=== PATIENT | female | born 1950 | race Caucasian/White ===

== ENCOUNTER 2019-03-03 13:39 | Emergency (ER) | payer OTHER ==
--- NOTE | 2019-03-03 14:18 | ER ---
Nurse's Notes [facility] Name: Diane Carrasco Age: 68 yrs Sex: Female : 1950 Arrival Date: 03/03/2019 Time: 13:40 Bed 24 Private MD: Byron Gannon Diagnosis: Paresthesia of skin Presentation: 03/03 13:46 Presenting complaint: Patient states: She hurt her back 2 weeks ago and has had aj1 numbness to her face, tongue and both her arms since then, She was seen at Dr. Gannon's office for this complaint and has had multiple X-Rays. Reports that she has a follow up with Dr. Gannon in the morning. Patient ambulated to triage with a steady gait. Transition of care: patient was not received from another setting of care. Onset of symptoms was 2018. Risk Assessment: Do you want to hurt yourself or someone else? Patient reports no desire to harm self or others. Initial Sepsis Screen: Does the patient meet any 2 criteria? HR > 90 bpm. No. Patient's initial sepsis screen is negative. Does the patient have a suspected source of infection? No. Patient's initial sepsis screen is negative. Care prior to arrival: None. 13:46 Method Of Arrival: Ambulatory aj1 13:46 Acuity: THAO 3 aj1 Triage Assessment: 13:51 General: Appears in no apparent distress. uncomfortable, Behavior is calm, cooperative, aj1 appropriate for age. Pain: Pain currently is 7 out of 10 on a pain scale. Neuro: Level of Consciousness is awake, alert, obeys commands. Cardiovascular: Patient's skin is warm and dry. Respiratory: Airway is patent Respiratory effort is even, unlabored, Respiratory pattern is regular, symmetrical. Musculoskeletal: Range of motion: intact in all extremities. Historical: - Allergies: 13:51 No Known Allergies; aj1 - Home Meds: 13:51 Omeprazole Oral [Active]; aj1 - PMHx: 13:51 Arthritis; GERD; aj1 - Immunization history:: Flu vaccine is not up to date. - Social history:: Smoking status: Patient uses tobacco products, denies chronic smoking, but will smoke occasionally. - Ebola Screening: : Patient denies travel to an Ebola-affected area in the 21 days before illness onset. - Family history:: not pertinent. - Hospitalizations: : No recent hospitalization is reported. Screenin:01 Abuse screen: Denies threats or abuse. Denies injuries from another. Nutritional rv screening: No deficits noted. Tuberculosis screening: No symptoms or risk factors identified. Fall Risk None identified. No fall in past 12 months (0 pts). Secondary diagnosis (15 points) impaired mobility, No IV (0 pts). Ambulatory Aid- None/Bed Rest/Nurse Assist (0 pts). Gait- Weak (10 pts.). Mental Status- Oriented to own ability (0 pts). Total Dee Fall Scale indicates No Risk (0-24 pts). Assessment: 14:00 General: Appears in no apparent distress. Behavior is calm. Pain:. Neuro: Level of rv Consciousness is awake, alert, obeys commands, Oriented to person, place, time, situation. Cardiovascular: Patient's skin is warm and dry. Respiratory: Airway is patent. GI: No signs and/or symptoms were reported involving the gastrointestinal system. : No signs and/or symptoms were reported regarding the genitourinary system. EENT: No signs and/or symptoms were reported regarding the EENT system. Derm: Skin is intact. Musculoskeletal:. 14:19 Reassessment: DR BARONE EXPLAINED TO THE PATIENT THE POSSIBLE CAUSE OF HER TREMORS AND rv NUMBNESS. DISCHARGED PATIENT WITHOUT PRESCRIPTION. PATIENT UNDERSTOOD THE PLAN OF CARE. Vital Signs: 13:51 BP 174 / 95; Pulse 103; Resp 20; Temp 97.8; Pulse Ox 100% on R/A; Height 5 ft. 5 in. aj1 (165.10 cm) (R); Pain 7/10; ED Course: 13:40 Patient arrived in ED. ag5 13:41 Byron Gannon MD is Private Physician. ag5 13:50 Triage completed. aj1 13:51 Arm band placed on Patient placed in an exam room. aj1 13:53 Humberto Barone MD is Attending Physician. rn 13:57 Manjinder Katz RN is Primary Nurse. rv 14:02 Patient has correct armband on for positive identification. Bed in low position. Call rv light in reach. Side rails up X 1. Adult w/ patient. Pulse ox on. NIBP on. 14:17 Byron Gannon MD is Referral Physician. rn 14:20 No provider procedures requiring assistance completed. Patient did not have IV access rv during this emergency room visit. Administered Medications: No medications were administered Outcome: 14:17 Discharge ordered by . rn 14:21 Discharged to home ambulatory. rv 14:21 Condition: good 14:21 Discharge instructions given to patient, Instructed on discharge instructions, follow up and referral plans. Demonstrated understanding of instructions, follow-up care. 14:21 Patient left the ED. rv Signatures: Kristen Grace RN RN aj1 Humberto Barone MD MD rn Vicente, Ronaldo, RN RN Pravin Garrett ag5
--- NOTE | 2019-03-03 14:18 | EDPHYS ---
Physician Documentation [facility] Name: Diane Carrasco Age: 68 yrs Sex: Female : 1950 Arrival Date: 03/03/2019 Time: 13:40 Bed 24 Private MD: Byrno Gannon ED Physician Humberto Barone HPI: 03/03 14:12 This 68 yrs old Female presents to ER via Ambulatory with complaints of rn Numbness Of Face, Numbness Of Hand, Back Pain. 14:12 The patient's problem is reported as paresthesias. The patient's problem is reported as rn paresthesias, in right upper extremity, in right lower extremity, in left upper extremity, in left lower extremity, in right side of face, in left side of face. Onset: The symptoms/episode began/occurred at an unknown time. The symptoms are alleviated by nothing. The symptoms are aggravated by nothing. Severity of symptoms: At their worst the symptoms were mild in the emergency department the symptoms are unchanged. The patient has experienced similar episodes in the past. Reports fell 3 weeks ago and hurt lower back, has been having intermittent numbness to face/arms/legs, since then. Has had xrays and put on muscle relaxer/pain meds/B12. Has had low b12 in past and numbness improved with injections at that time. PCP wrote for q weekly B12. Came here because has appt tomorrow and wanted to make sure wasn't having a stroke.. Historical: - Allergies: 13:51 No Known Allergies; aj1 - Home Meds: 13:51 Omeprazole Oral [Active]; aj1 - PMHx: 13:51 Arthritis; GERD; aj1 - Immunization history:: Flu vaccine is not up to date. - Social history:: Smoking status: Patient uses tobacco products, denies chronic smoking, but will smoke occasionally. - Ebola Screening: : Patient denies travel to an Ebola-affected area in the 21 days before illness onset. - Family history:: not pertinent. - Hospitalizations: : No recent hospitalization is reported. ROS: 14:12 Constitutional: Negative for fever, chills, and weight loss, Eyes: Negative for injury, rn pain, redness, and discharge, Neck: Negative for injury, pain, and swelling, Cardiovascular: Negative for chest pain, palpitations, and edema, Respiratory: Negative for shortness of breath, cough, wheezing, and pleuritic chest pain, Abdomen/GI: Negative for abdominal pain, nausea, vomiting, diarrhea, and constipation, Back: Positive for injury and pain, MS/Extremity: Negative for injury and deformity, Skin: Negative for injury, rash, and discoloration, Neuro: Negative for headache, weakness, and seizure. Exam: 14:12 Constitutional: This is a well developed, well nourished patient who is awake, alert, rn and in no acute distress. Ambulatory to room without difficulty or assistance. Head/Face: Normocephalic, atraumatic. Eyes: Pupils equal round and reactive to light, extra-ocular motions intact. Lids and lashes normal. Conjunctiva and sclera are non-icteric and not injected. Cornea within normal limits. Periorbital areas with no swelling, redness, or edema. ENT: MMM, no swelling Neck: Trachea midline, no thyromegaly or masses palpated, and no cervical lymphadenopathy. Supple, full range of motion without nuchal rigidity, or vertebral point tenderness. No Meningismus. Back: No spinal tenderness. No costovertebral tenderness. Full range of motion. Skin: Warm, dry with normal turgor. Normal color with no rashes, no lesions, and no evidence of cellulitis. MS/ Extremity: Pulses equal, no cyanosis. Neurovascular intact. Full, normal range of motion. Equal circumference. Neuro: Awake and alert, GCS 15, oriented to person, place, time, and situation. Cranial nerves II-XII grossly intact. Motor strength 5/5 in all extremities. Sensory grossly intact. Cerebellar exam normal. Normal gait. Vital Signs: 13:51 BP 174 / 95; Pulse 103; Resp 20; Temp 97.8; Pulse Ox 100% on R/A; Height 5 ft. 5 in. aj1 (165.10 cm) (R); Pain 7/10; MDM: 13:53 Patient medically screened. rn 14:12 Differential diagnosis: metabolic disorder. Data reviewed: vital signs, nurses notes, rn and as a result, I will discharge patient. Counseling: I had a detailed discussion with the patient and/or guardian regarding: the historical points, exam findings, and any diagnostic results supporting the discharge/admit diagnosis, the need for outpatient follow up, to return to the emergency department if symptoms worsen or persist or if there are any questions or concerns that arise at home. Refusal of service: The patient/guardian displays adequate decision making capability and despite a detailed discussion of alternatives, benefits, risks, and consequences refuses: CT Scan, all lab tests. Special discussion: I discussed with the patient/guardian in detail that at this point there is no indication for admission to the hospital. It is understood, however, that if the symptoms persist or worsen the patient needs to return immediately for re-evaluation. Based on the history and exam findings, there is no indication for further emergent testing or inpatient evaluation. I discussed with the patient/guardian the need to see the primary care provider for further evaluation of the symptoms. ED course: Pt with diffuse symptoms and bilateral paresthesias. Offered CT head and labs, patient declines. States has f/u with Dr. Gannon tomorrow and will wait until then. . Administered Medications: No medications were administered Disposition: 03/03/19 14:17 Discharged to Home. Impression: Paresthesia of skin. - Condition is Stable. - Discharge Instructions: Paresthesia. - Medication Reconciliation Form, Thank You Letter, Antibiotic Education, Prescription Opioid Use form. - Follow up: Byron Gannon MD; When: Tomorrow; Reason: Recheck today's complaints, Re-evaluation by your physician. - Problem is new. - Symptoms have improved. Signatures: Kristen Grace RN RN aj1 Humberto Barone MD MD rn Vicente, Ronaldo, RN RN rv Corrections: (The following items were deleted from the chart) 14:14 14:12 Constitutional: Negative for fever, chills, and weight loss, Eyes: Negative for rn injury, pain, redness, and discharge, Cardiovascular: Negative for chest pain, palpitations, and edema, Respiratory: Negative for shortness of breath, cough, wheezing, and pleuritic chest pain, Abdomen/GI: Negative for abdominal pain, nausea, vomiting, diarrhea, and constipation, MS/Extremity: Negative for injury and deformity, Skin: Negative for injury, rash, and discoloration, Neuro: Negative for headache, weakness, and seizure, rn 14:14 14:12 Constitutional: Negative for fever, chills, and weight loss, Eyes: Negative for rn injury, pain, redness, and discharge, Neck: Negative for injury, pain, and swelling, Cardiovascular: Negative for chest pain, palpitations, and edema, Respiratory: Negative for shortness of breath, cough, wheezing, and pleuritic chest pain, Abdomen/GI: Negative for abdominal pain, nausea, vomiting, diarrhea, and constipation, MS/Extremity: Negative for injury and deformity, Skin: Negative for injury, rash, and discoloration, Neuro: Negative for headache, weakness, and seizure, rn 14:15 14:12 Constitutional: This is a well developed, well nourished patient who is awake, rn alert, and in no acute distress. Ambulatory to room without difficulty or assistance. Head/Face: Normocephalic, atraumatic. Eyes: Pupils equal round and reactive to light, extra-ocular motions intact. Lids and lashes normal. Conjunctiva and sclera are non-icteric and not injected. Cornea within normal limits. Periorbital areas with no swelling, redness, or edema. ENT: MMM, no swelling Back: No spinal tenderness. No costovertebral tenderness. Full range of motion. Skin: Warm, dry with normal turgor. Normal color with no rashes, no lesions, and no evidence of cellulitis. MS/ Extremity: Pulses equal, no cyanosis. Neurovascular intact. Full, normal range of motion. Equal circumference. Neuro: Awake and alert, GCS 15, oriented to person, place, time, and situation. Cranial nerves II-XII grossly intact. Motor strength 5/5 in all extremities. Sensory grossly intact. Cerebellar exam normal. Normal gait. rn 14:21 14:17 03/03/2019 14:17 Discharged to Home. Impression: Paresthesia of skin. Condition rv is Stable. Forms are Medication Reconciliation Form, Thank You Letter, Antibiotic Education, Prescription Opioid Use. Follow up: Byron Gannon; When: Tomorrow; Reason: Recheck today's complaints, Re-evaluation by your physician. Problem is new. Symptoms have improved. rn
[2019-03-03 16:30] VITALS: BP 174/95; TEMP 97.8; O2SAT 100
== END 2019-03-03 14:21 | disposition home or self-care (01) ==
LOC: ER 13:39
DX: R20.2 Paresthesia of skin (principal); Z72.0 Tobacco use
CPT/HCPCS: 99283

== ENCOUNTER 2019-08-26 09:39 | Observation (INO) | payer OTHER ==
[2019-08-26 10:30] LABS: Absolute Lymphocytes (CBC) 2.8 K/uL (0.7-4.9); Basophils % 0.7 % (0-1.3); Hematocrit 42.2 % (36.0-45.0); Lymphocytes % 35.2 % (15.3-44.8); MPV 9.2 fL (7.6-11.3); Protime INR 0.93; RBC Red Blood Cell Count 4.67 M/uL (3.86-4.86)
[2019-08-26] MEDS ORDERED: ASPIRIN 81 MG CHEWABLE TABLET ONE (10:54)
[2019-08-26] MEDS ORDERED: METOPROLOL TAR 50 MG TAB ONE (10:54)
[2019-08-26] MEDS ORDERED: PANTOPRAZOLE 40 MG INJ ONE (10:54)
--- NOTE | 2019-08-26 10:54 | EDPHYS ---
Physician Documentation [facility] Name: Diane Carrasco Age: 68 yrs Sex: Female : 1950 Arrival Date: 08/26/2019 Time: 09:42 Bed 14 Private MD: Byron Gannon ED Physician Hosea Marshall HPI: 08/25 10:34 This 68 yrs old Female presents to ER via Ambulatory with complaints of Chest rand Pain, Dizziness. 10:34 The patient or guardian reports chest pain that is located primarily in the substernal rand area. Historical: - Allergies: 10:03 No Known Allergies; ss - PMHx: 10:03 Arthritis; GERD; ss - Immunization history:: Adult Immunizations up to date. - Social history:: Smoking status: Patient denies any tobacco usage or history of. ROS: 10:42 Constitutional: Negative for fever, chills, and weight loss, Eyes: Negative for injury, rand pain, redness, and discharge, ENT: Negative for injury, pain, and discharge, Neck: Negative for injury, pain, and swelling, Cardiovascular: Negative for chest pain, palpitations, and edema, Respiratory: Negative for shortness of breath, cough, wheezing, and pleuritic chest pain, Back: Negative for injury and pain, : Negative for injury, bleeding, discharge, and swelling, MS/Extremity: Negative for injury and deformity, Skin: Negative for injury, rash, and discoloration, Neuro: Negative for headache, weakness, numbness, tingling, and seizure, Psych: Negative for depression, anxiety, suicide ideation, homicidal ideation, and hallucinations, Allergy/Immunology: Negative for hives, rash, and allergies, Endocrine: Negative for neck swelling, polydipsia, polyuria, polyphagia, and marked weight changes, Hematologic/Lymphatic: Negative for swollen nodes, abnormal bleeding, and unusual bruising. 10:42 Cardiovascular: Positive for chest pain, of the chest. 10:42 Abdomen/GI: Positive for abdominal pain. Exam: 10:42 Constitutional: This is a well developed, well nourished patient who is awake, alert, rand and in no acute distress. Head/Face: Normocephalic, atraumatic. Eyes: Pupils equal round and reactive to light, extra-ocular motions intact. Lids and lashes normal. Conjunctiva and sclera are non-icteric and not injected. Cornea within normal limits. Periorbital areas with no swelling, redness, or edema. ENT: Nares patent. No nasal discharge, no septal abnormalities noted. Tympanic membranes are normal and external auditory canals are clear. Oropharynx with no redness, swelling, or masses, exudates, or evidence of obstruction, uvula midline. Mucous membranes moist. Neck: Trachea midline, no thyromegaly or masses palpated, and no cervical lymphadenopathy. Supple, full range of motion without nuchal rigidity, or vertebral point tenderness. No Meningismus. Chest/axilla: Normal chest wall appearance and motion. Nontender with no deformity. No lesions are appreciated. Cardiovascular: Regular rate and rhythm with a normal S1 and S2. No gallops, murmurs, or rubs. Normal PMI, no JVD. No pulse deficits. Respiratory: Lungs have equal breath sounds bilaterally, clear to auscultation and percussion. No rales, rhonchi or wheezes noted. No increased work of breathing, no retractions or nasal flaring. Abdomen/GI: Soft, non-tender, with normal bowel sounds. No distension or tympany. No guarding or rebound. No evidence of tenderness throughout. Back: No spinal tenderness. No costovertebral tenderness. Full range of motion. Female : Normal external genitalia. Skin: Warm, dry with normal turgor. Normal color with no rashes, no lesions, and no evidence of cellulitis. MS/ Extremity: Pulses equal, no cyanosis. Neurovascular intact. Full, normal range of motion. Neuro: Awake and alert, GCS 15, oriented to person, place, time, and situation. Cranial nerves II-XII grossly intact. Motor strength 5/5 in all extremities. Sensory grossly intact. Cerebellar exam normal. Normal gait. Psych: Awake, alert, with orientation to person, place and time. Behavior, mood, and affect are within normal limits. Vital Signs: 09:59 BP 198 / 93; Pulse 83; Resp 16; Temp 98.4(TE); Pulse Ox 98% on R/A; Weight 58.97 kg; ss Height 5 ft. 5 in. (165.10 cm); Pain 7/10; 11:00 BP 147 / 82; Pulse 67; Resp 18; Pulse Ox 98% on R/A; Pain 8/10; em 11:28 BP 163 / 88; Pulse 72; Resp 18; Pulse Ox 97% on R/A; em 09:59 Body Mass Index 21.63 (58.97 kg, 165.10 cm) ss MDM: 10:05 Patient medically screened. [facility] 10:43 Data reviewed: vital signs, nurses notes, lab test result(s), EKG, radiologic studies, rand plain films. 08/25 10:05 Order name: Basic Metabolic Panel; Complete Time: 11:51 [facility] 08/25 10:05 Order name: CBC with Diff; Complete Time: 10:48 [facility] 08/25 10:05 Order name: LFT's; Complete Time: 11:51 [facility] 08/25 10:05 Order name: Magnesium; Complete Time: 11:52 [facility] 08/25 10:05 Order name: NT PRO-BNP; Complete Time: 11:52 [facility] 08/25 10:05 Order name: PT-INR; Complete Time: 10:48 [facility] 08/25 10:05 Order name: Troponin (emerg Dept Use Only); Complete Time: 11:52 [facility] 08/25 10:05 Order name: XRAY Chest (1 view); Complete Time: 11:52 [facility] 08/25 10:05 Order name: Urine Culture [facility] 08/25 10:34 Order name: CT Aorta for Dissection [facility] 08/25 12:12 Order name: CT EDIN 08/25 10:05 Order name: EKG; Complete Time: 10:07 [facility] 08/25 10:05 Order name: Cardiac monitoring; Complete Time: 10:16 [facility] 08/25 10:05 Order name: EKG - Nurse/Tech; Complete Time: 10:16 [facility] 08/25 10:05 Order name: IV Saline Lock; Complete Time: 10:16 [facility] 08/25 10:05 Order name: Labs collected and sent; Complete Time: 10:16 [facility] 08/25 10:05 Order name: O2 Per Protocol; Complete Time: 10:16 [facility] 08/25 10:05 Order name: O2 Sat Monitoring; Complete Time: 10:15 [facility] 08/25 11:04 Order name: CONS Physician Consult EDMS 08/25 11:04 Order name: CONS Physician Consult EDMS Administered Medications: 10:19 Drug: NS 0.9% 500 ml Route: IV; Rate: bolus; Site: right antecubital; ca1 10:35 Follow up: IV Status: Completed infusion; IV Intake: 500ml em 10:35 Drug: NS 0.9% 1000 ml Route: IV; Rate: 125 ml/hr; Site: right antecubital; em 12:59 Follow up: IV Status: Infusion continued upon admission em 11:30 Drug: ProTONIX 40 mg Route: IVP; Site: right antecubital; em 12:59 Follow up: Response: No adverse reaction; Marked relief of symptoms; Pain is decreased em 11:30 Drug: Lopressor (metoprolol TARTRATE) 50 mg Route: PO; em 12:59 Follow up: Response: No adverse reaction em 12:45 Drug: Aspirin 162 mg Route: PO; ss 12:59 Follow up: Response: No adverse reaction em Disposition: 08/26/19 10:53 Hospitalization ordered by Byron Gannon for Inpatient Admission. Preliminary diagnosis are Chest pain, unspecified, Abdominal tenderness, Gastro-esophageal reflux disease. - Bed requested for Telemetry/MedSurg (Inpatient). - Status is Inpatient Admission. em - Condition is Fair. - Problem is new. - Symptoms have improved. Signatures: Dispatcher [employer] EDLexi Rogers RN RN dw Anderson, Corey, MD MD cha Munoz, Edgar, RN RN Elizabeth Ewing RN RN Suellen Siddiqui RN RN ca1 Corrections: (The following items were deleted from the chart) 11:14 10:53 Hospitalization Ordered by Byron Gannon MD for Inpatient Admission. Preliminary dw diagnosis is Chest pain, unspecified; Abdominal tenderness; Gastro-esophageal reflux disease. Bed requested for Telemetry/MedSurg (Inpatient). Status is Inpatient Admission. Condition is Fair. Problem is new. Symptoms have improved. [facility] 13:00 11:14 08/26/2019 10:53 Hospitalization Ordered by Byron Gannon MD for Inpatient em Admission. Preliminary diagnosis is Chest pain, unspecified; Abdominal tenderness; Gastro-esophageal reflux disease. Bed requested for Telemetry/MedSurg (Inpatient). Status is Inpatient Admission. Condition is Fair. Problem is new. Symptoms have improved. dw
--- NOTE | 2019-08-26 10:54 | ER ---
Nurse's Notes [facility] Name: Diane Carrasco Age: 68 yrs Sex: Female : 1950 Arrival Date: 08/26/2019 Time: 09:42 Bed 14 Private MD: Byron Gannon Diagnosis: Chest pain, unspecified;Abdominal tenderness;Gastro-esophageal reflux disease Presentation: 08/25 10:00 Chief complaint: Patient states: chest pain x months, and dizziness that began this morning with nausea. Pt was seen by Dr. Gannon 3 days ago and is supposed to have an endoscopy to see if it is reflux that is causing her pain. Coronavirus screen: The patient has NOT traveled to [place] in the past 14 days. Proceed with normal triage procedures. Ebola Screen: Patient denies exposure to infectious person. Patient denies travel to an Ebola-affected area in the 21 days before illness onset. Initial Sepsis Screen: Does the patient meet any 2 criteria? No. Patient's initial sepsis screen is negative. Does the patient have a suspected source of infection? No. Patient's initial sepsis screen is negative. Risk Assessment: Do you want to hurt yourself or someone else? Patient reports no desire to harm self or others. 10:00 Method Of Arrival: Ambulatory ss 10:00 Acuity: THAO 3 ss 10:12 Onset of symptoms was August 26, 2019. ca1 Historical: - Allergies: 10:03 No Known Allergies; ss - PMHx: 10:03 Arthritis; GERD; ss - Immunization history:: Adult Immunizations up to date. - Social history:: Smoking status: Patient denies any tobacco usage or history of. Screenin:12 Abuse screen: Denies threats or abuse. Denies injuries from another. Nutritional ca1 screening: No deficits noted. Tuberculosis screening: No symptoms or risk factors identified. Fall Risk IV access (20 points). Assessment: 10:30 General: Appears in no apparent distress. comfortable, Behavior is calm, cooperative, em Denies fever. Pain: Complains of pain in chest Pain radiates to back Pain currently is 7 out of 10 on a pain scale. Pain began 6 months ago. Neuro: Level of Consciousness is awake, alert, obeys commands, Oriented to person, place, time, situation, Appropriate for age Reports dizziness. Cardiovascular: Capillary refill < 3 seconds Patient's skin is warm and dry. Rhythm is sinus rhythm. Respiratory: Airway is patent Respiratory effort is even, unlabored, Respiratory pattern is regular, symmetrical, Breath sounds are clear bilaterally. GI: Reports nausea, Patient currently denies vomiting. Derm: Skin is intact, is healthy with good turgor, Skin is pink, warm \T\ dry. Musculoskeletal: Capillary refill < 3 seconds, Range of motion: intact in all extremities. 11:28 Reassessment: Patient appears in no apparent distress at this time. Patient and/or em family updated on plan of care and expected duration. Pain level reassessed. Patient is alert, oriented x 3, equal unlabored respirations, skin warm/dry/pink. reports epigastric pain, 7/10. Vital Signs: 09:59 BP 198 / 93; Pulse 83; Resp 16; Temp 98.4(TE); Pulse Ox 98% on R/A; Weight 58.97 kg; ss Height 5 ft. 5 in. (165.10 cm); Pain 7/10; 11:00 BP 147 / 82; Pulse 67; Resp 18; Pulse Ox 98% on R/A; Pain 8/10; em 11:28 BP 163 / 88; Pulse 72; Resp 18; Pulse Ox 97% on R/A; em 09:59 Body Mass Index 21.63 (58.97 kg, 165.10 cm) ED Course: 09:42 Patient arrived in ED. mr 09:42 Byron Gannon MD is Private Physician. mr 09:48 Dallas Ruano, RN is Primary Nurse. em 09:59 Arm band placed on right wrist. ss 10:02 Triage completed. ss 10:05 Hosea Marshall MD is Attending Physician. [facility] 10:12 Patient has correct armband on for positive identification. Placed in gown. Bed in low ca1 position. Call light in reach. Side rails up X 1. early childhood aide classroom on. Pulse ox on. NIBP on. Warm blanket given. 10:12 No provider procedures requiring assistance completed. Inserted saline lock: 20 gauge ca1 in right antecubital area, using aseptic technique. Blood collected. Patient maintains SpO2 saturation greater than 95% on room air. 10:46 XRAY Chest (1 view) In Process Unspecified. EDMS 10:49 Byron Gannon MD is Hospitalizing Provider. rand 13:00 Patient admitted, IV remains in place. em Administered Medications: 10:19 Drug: NS 0.9% 500 ml Route: IV; Rate: bolus; Site: right antecubital; ca1 10:35 Follow up: IV Status: Completed infusion; IV Intake: 500ml em 10:35 Drug: NS 0.9% 1000 ml Route: IV; Rate: 125 ml/hr; Site: right antecubital; em 12:59 Follow up: IV Status: Infusion continued upon admission em 11:30 Drug: ProTONIX 40 mg Route: IVP; Site: right antecubital; em 12:59 Follow up: Response: No adverse reaction; Marked relief of symptoms; Pain is decreased em 11:30 Drug: Lopressor (metoprolol TARTRATE) 50 mg Route: PO; em 12:59 Follow up: Response: No adverse reaction em 12:45 Drug: Aspirin 162 mg Route: PO; ss 12:59 Follow up: Response: No adverse reaction em Intake: 10:35 IV: 500ml; Total: 500ml. em Outcome: 10:53 Decision to Hospitalize by Provider. [facility] 12:59 Admitted to Tele accompanied by tech, via wheelchair, room 224, on monitor, with chart, em Report called to ALONDRA Cheema 12:59 Condition: good 12:59 Instructed on the need for admit, Demonstrated understanding of instructions. 13:00 Patient left the ED. em Signatures: Dispatcher [employer] Hoesa Traore MD MD cha Rivera, Mary mr Munoz, [place], Elizabeth Mancuso RN, RN RN Suellen Siddiqui RN RN ca1
[2019-08-26 10:58] LABS: ALT/SGPT 14 U/L (12-78); AST/SGOT 13 U/L (15-37); Albumin 3.6 g/dL (3.4-5.0); Alkaline Phosphatase 110 U/L (45-117); BUN Blood Urea Nitrogen 14 mg/dL (7-18); Bicarbonate 25 mmol/L (21-32); Bilirubin Direct < 0.1 mg/dL (0-0.2); Bilirubin Total 0.3 mg/dL (0.2-1.0); Glucose Level 99 mg/dL (74-106); Magnesium 2.3 mg/dL (1.8-2.4); NT PRO-BNP 42 pg/mL (<125); Potassium 4.2 mmol/L (3.5-5.1); Sodium Level 142 mmol/L (136-145); Troponin (Emerg Dept Use Only) < 0.02 ng/mL (0.0-0.045)
--- NOTE | 2019-08-26 11:21 | RAD REPORT ---
EXAM DESCRIPTION: RAD - Chest Single View - 08/26/2019 10:45 am CLINICAL HISTORY: COUGH Chest pain. COMPARISON: Chest Pa And Lat (2 Views) dated 03/12/2018; CHEST SINGLE VIEW dated 07/22/2015; CHEST SIN GLE VIEW dated 09/24/2011; CHEST PA AND LAT 2 VIEW dated 01/01/2003 FINDINGS: Portable technique limits examination quality. The lungs are grossly clear. The heart is normal in size. No displaced fractures. IMPRESSION: No acute intrathoracic process suspected.
--- NOTE | 2019-08-26 11:33 | RAD REPORT ---
EXAM DESCRIPTION: CT - Angio Aorta For Dissection - 08/26/2019 11:14 am CLINICAL HISTORY: Chest pain radiating to the back. DISSECTION COMPARISON: No comparisons TECHNIQUE: CT angiography of the aorta was performed with MIPs. All CT scans are performed using dose optimization technique as appropriate and may include automated exposure control or mA/KV adjustment according to patient size. FINDINGS: A left aortic arch is present with normal branching pattern of the great vessels.No acute aortic finding is seen such as aneurysm, penetrating ulcer or dissection. The celiac axis, SMA, FERNANDA and renal arteries are patent. No evidence of pulmonary embolism. The lungs are clear. The liver demonstrates no focal mass or biliary dilatation.The spleen, pancreas, adrenal glands and k idneys are within normal limits for arterial phase imaging. No bowel obstruction, free fluid or abscess.Several large duodenal diverticulum noted.No pathologic e nlarged lymphadenopathy identified. Mild wedge compression deformities are seen in the spine, chronic in appearance. IMPRESSION: No acute aortic finding is demonstrated.
[2019-08-26] MEDS ORDERED: SODIUM CHLORIDE 0.9% 10ML INJ IV PRN (13:14)
[2019-08-26] MEDS ORDERED: ONDANSETRON 4 MG/2 ML VIAL IV PRN (13:14)
[2019-08-26] MEDS ORDERED: MORPHINE 2 MG/ML SYR IV PRN (13:14)
[2019-08-26] MEDS ORDERED: ACETAMINOPHEN 325 MG TABLET PO PRN (13:14)
[2019-08-26 13:22] VITALS: BMI 21.6
[2019-08-26] MEDS ORDERED: cloNIDine HCL 0.1 MG TAB PO PRN (15:31)
--- NOTE | 2019-08-26 15:32 | EKG ---
Test Date: 2019-08-26 Test Time: 10:02:00 Technical Support Representative: CATE MEASUREMENT RESULTS: Intervals: Rate: 81 ID: [id number] QRSD: 66 QT: 368 QTc: 427 [place]: P: 43 ID: [id number] QRS: 9 T: 23 INTERPRETIVE STATEMENTS: Normal sinus rhythm Normal ECG Compared to ECG 07/22/2015 17:26:49 No significant changes Electronically Signed On 08-26-19 15:32:12 MANAGER OPERATIONS by Feliciano Barrera
[2019-08-26] MEDS ORDERED: cloNIDine HCL 0.1 MG TAB PO ONE (15:35)
[2019-08-26] MEDS: D5W 1,000 ML IV SCH (15:42)
[2019-08-26] MEDS: METOPROLOL TAR 25 MG TAB PO SCH (17:09)
--- NOTE | 2019-08-26 19:04 | RAD REPORT ---
EXAM DESCRIPTION: - CP - 08/26/2019 6:42 pm CLINICAL HISTORY: vertigo neck pain rule out dissection COMPARISON: No comparisons TECHNIQUE: Real-time sonographic evaluation of bilateral carotid and vertebral systems was performed . Bosch scale and Doppler interrogation were performed with waveform tracing bilaterally. FINDINGS: Normal high resistance waveforms are noted in both external carotid arteries. The common c arotid arteries and internal carotid arteries show normal low resistance waveforms. Calcified and noncalcified plaquing changes are present in the bilateral carotid vasculature. Visuall y there is no significant luminal narrowing. Peak systolic and end diastolic velocity values and the ICA/CCA ratios are in the non-hemodynamically significant range. Antegrade flow seen in both vertebral arteries. Velocity values and ratios were recorded and are retained in the patient's imaging records. No dissection findings seen. IMPRESSION: Calcified and noncalcified plaquing changes are present. No evidence of a hemodynamically significant stenosis. No dissection identified.
--- NOTE | 2019-08-26 20:17 | CON ---
History Of Present Illness: Mrs. Carrasco is a patient of Dr. Gannon. She came to our emergency room b ecause of chest pain. She gets chest pain that is epigastric. Sometimes it feels like somebody is s itting on her. What really prompted her emergency room visit was an episode of vertigo. She awakene d with it. She awakened at 3 a.m., sat up and the room was spinning, were not sure if she sat up bef ore it spun or afterwards. The patient has never had myocardial infarction, stroke, or diabetes. Kimberly bourne does have hypertension and she has a history of tobacco use. Medications: Her only outpatient medications are omeprazole and tramadol. Allergies: SHE HAS NO ALLERGIES. Social History: Alcohol use moderate. No illegal drugs. Tobacco use is apparently cut down from pr eviously high levels, but she still smokes a couple times a month. Physical Examination: Vital Signs: 5 feet, 5 inches, 130 pounds. HEENT: Unremarkable. Lungs: Clear. Cardiac: Normal. Abdomen: Soft. Extremities: Normal. No cyanosis, clubbing, or edema. Imaging Data: Electrocardiogram reveals sinus rhythm. It is normal. Cardiac enzymes are normal. I will recommend she do an echocardiogram, stress test, carotid Doppler. She had a CT angiogram of th e aorta looking for dissection that is normal. Thank you very much for your kind referral of Ms. Carrasco. I will follow her with you. KIMBERLY/MARCELLUS Voice ID: [id number] Report ID: [id number]
[2019-08-26] MEDS: TEMAZEPAM 15 MG CAP PO PRN (21:24)
[2019-08-27] MEDS: METOPROLOL TAR 25 MG TAB PO SCH ×2 (06:00→17:31)
[2019-08-27 06:01] LABS: Basophils % 0.6 % (0-1.3); Hematocrit 38.8 % (36.0-45.0); Lymphocytes % 32.2 % (15.3-44.8); MPV 9.3 fL (7.6-11.3); RBC Red Blood Cell Count 4.26 M/uL (3.86-4.86)
[2019-08-27 06:17] LABS: Potassium 3.8 mmol/L (3.5-5.1)
[2019-08-27] MEDS ORDERED: REGADENOSON 0.4 MG/5 ML SYR IV ONE (08:19)
[2019-08-27] MEDS: ASPIRIN EC 81 MG TAB PO SCH (09:12)
[2019-08-27] MEDS: PANTOPRAZOLE 40 MG INJ IVP SCH (09:12)
--- NOTE | 2019-08-27 13:03 | PN ---
Ms. Carrasco is a patient of Dr. Gannon. She was admitted on 08/26/[address] Barrera for ches t pain. There is an echocardiogram and a stress test that are pending for today. Her EKG was normal , cardiac enzyme was normal. Carotid Doppler, which was done yesterday showed mild carotid artery di sease without any significant stenosis. A CT scan was negative for pulmonary embolus. She had some chronic wedge compression deformities that were seen in the spine. Echocardiogram and stress test ar e still pending. She is pain-free today. We will see what the echo and stress test shows prior to m aking final decisions. RICKIE/MARCELLUS Voice ID: [id number] Report ID: [id number]
--- NOTE | 2019-08-27 13:09 | ECHO ---
HEIGHT: 5 ft 5 in WEIGHT: 130 lb 0 oz DATE OF STUDY: 08/27/[address]: Feliciano Barrera MD 2-DIMENSIONAL: YES M.MODE: YES DOPPLER: YES COLOR FLOW: YES TDS: PORTABLE: DEFINITY: BUBBLE STUDY: DIAGNOSIS: CHEST PAIN CARDIAC HISTORY: CATHERIZATION: NO SURGERY: NO PROSTHETIC VALVE: NO PACEMAKER: NO MEASUREMENTS (cm) DIASTOLIC (NORMALS) SYSTOLIC (NORMALS) IVSd 0.9 (0.6-1.2) LA Diam 2.7 (1.9-4.0) LVEF 85% LVIDd 3.1 (3.5-5.7) LVIDs 1.4 (2.0-3.5) %FS 53% LVPWd 1.0 (0.6-1.2) Ao Diam 3.1 (2.0-3.7) 2 DIMENSIONAL ASSESSMENT: RIGHT ATRIUM: NORMAL LEFT ATRIUM: NORMAL RIGHT VENTRICLE: NORMAL LEFT VENTRICLE: NORMAL TRICUSPID VALVE: NORMAL MITRAL VALVE: NORMAL PULMONIC VALVE: NORMAL AORTIC VALVE: SCLEROSIS PERICARDIAL EFFUSION: NONE AORTIC ROOT: NORMAL LEFT VENTRICULAR WALL MOTION: NORMAL DOPPLER/COLOR FLOW: NORMAL COMMENTS: AORTIC SCLEROSIS NO STENOSIS. NORMAL LEFT ATRIUM SIZE. NORMAL LEFT VENTRICULAR SIZE AND FUNCTION. TECHNOLOGIST: ADA REVELES
--- NOTE | 2019-08-27 14:18 | RAD REPORT ---
EXAM DESCRIPTION: NM - Rest Stress Cardiac Imaging - 08/27/2019 2:01 pm CLINICAL HISTORY: Chest pain COMPARISON: None. TECHNIQUE: The patient was administered approximately 10 mCi of Tc 99m Sestamibi prior to resting SP ECT imaging of the heart. The patient was then administered approximately 30 mCi of Tc 99m Sestamibi following exercise or pharmacologic stress. Multiplanar SPECT images were reviewed. FINDINGS: The end diastolic volume is 47 ml, the end systolic volume is 7 ml, and the ejection fract ion is 84 %. No stress-induced ischemic changes confirmed on this study. Slightly diminished activity in the anter ior wall near the apex does not clearly change between rest and stress imaging. Inferolateral wall di minished activity closer to the base also without clear change between rest and stress sequencing. Th juan carlos are likely diaphragm and breast attenuation artifact. Scarring is lesser in likelihood. IMPRESSION: No stress-induced ischemic changes confirmed. Minimal areas of fixed diminished activity anterior wall and inferolateral wall are probably breast a ttenuation and diaphragm attenuation, respectively. Ventricular volumes and ejection fraction are normal range.
[2019-08-27] MEDS: TEMAZEPAM 15 MG CAP PO PRN (20:51)
--- NOTE | 2019-08-27 21:44 | HP ---
Date of Admission: 08/26/2019 Chief Complaint: Chest and gastric pain, vertigo. History Of Present Illness: The patient presented to the emergency room after waking up in the middl e of the night getting ready for work and she had marked vertigo. Stated that when she had moved her head to either side, the room was spinning, has had difficulty mobilizing. Once this was done, she continued to have significant spinning of the room and noticed some chest discomfort at the same time , which she felt was pressure in the lower part of her chest and in mid epigastric area. She therefo re presented to the emergency room. The mid-epigastric chest discomfort has been present off and on for some time. However, she was seen last week with significant mid epigastric pain, which she said she has had off and on for a couple m onths, but this is more severe at one time. Discussion was made for her to schedule an EEG with a ga stroenterologist. This never came to fruition. In any event associated this time with some chest di scomfort. Past History: Patient presented the emergency room, but 6 months ago with some paresthesias of her r ight side of her body, which she felt might have been a stroke and negative to workup at that time. Patient does have elevated blood pressures over the last couple days, prior to that has been normal. She states she has been under considerable stress. Social History: The patient has a history of social alcohol intake and has smoked in the past. Pineda bronson, this has been minimal as of late. Family History: Noncontributory. Physical Examination: General: Patient is a normally built, elderly female with a blood pressure of 200/110. Head and Neck: Normocephalic. Pupils equal, reactive to accommodation. Fundi negative. Trachea mi dline. Thyroid not palpable. ENT: Negative. Chest: Clear to P and A. Breasts: Negative. Cardiovascular: PMI midclavicular line. Heart sounds normal. Peripheral pulses present and equal b ilaterally. Abdomen: Minimal tenderness midepigastric area. No guarding, rebound, tenderness, or rigidity. [place] el sounds hyperactive. Extremities: Slightly dehydrated, good tone and movement bilaterally. Reflexes physiologic. Rectal: Deferred. Pelvic: Deferred. Impression: Vertigo; acute labyrinthitis; chest pain, atypical; pylorospasm; hypertension poor contr ol. Plan: Patient will be admitted, placed on IV, monitored. Cardiac consultation will be obtained as w ell as GI. If the cardiac workup is negative, I would recommend that she undergo the EGD. In the [facility], she will be treated symptomatically for her stomach pain and vertigo. HR/MODL Voice ID: [id number]
[2019-08-28] MEDS: METOPROLOL TAR 25 MG TAB PO SCH (05:44)
[2019-08-28] MEDS: D5W 1,000 ML IV SCH (05:49)
--- NOTE | 2019-08-28 07:59 | TREADPHA ---
DX: CHEST PAIN Date of Study: 08/27/2019 Ht: 5 5 Wt: 130 lb 0 oz Consulting Physician: ADRIANA MEDICATIONS: TYLENOL, ASPIRIN, CATAPRES, LOPRESSOR, PROTONIX HISTORY: 68 YEAR FEMALE WITH CHEST PAIN. MEDICAL HISTORY OF NODULE ON THYROID AND SMOKER. PHYSICIAL EXAMINATION: RESTING B.P.: 136/91 RESTING H.R.: 67 RESTING EKG: NORMAL PROTOCOL: LEXISCAN EXERCISE TIME: 3:30 B.P. AT PEAK STRESS: 123/81 IMPRESSION: LEXISCAN INJECTED. CARDIOLITE INJECTED PER PROTOCOL. SEE NUCLEA R MEDICINE REPORT. NO SUPRAVENTRICULAR TACHYCARDIA. NO VENTRICULAR TACHYCARDIA. NO PREMATURE VENTRICULAR COMPLEXES. DENIED CHEST PAIN. NON DIAGNOSTIC EKG WITH LEXISCAN STRESS.
[2019-08-28] MEDS: ASPIRIN EC 81 MG TAB PO SCH (08:45)
[2019-08-28] MEDS: PANTOPRAZOLE 40 MG INJ IVP SCH (08:46)
[2019-08-28] MEDS ORDERED: Ringers Lactate 1,000 ML IV ONE (11:28)
[2019-08-28] MEDS ORDERED: MIDAZOLAM HCL 2 MG/2 ML INJ ONE (12:50)
[2019-08-28] MEDS ORDERED: LIDOCAINE 1% MPF 5 ML VIAL ONE (12:50)
[2019-08-28] MEDS ORDERED: propofoL 200 MG/20 ML VIAL IV ONE (12:50)
--- NOTE | 2019-08-28 13:15 | PN ---
Date of Progress Note: 08/27/2019 The patient has had a cardiac workup, which was negative. for her EGD source o f her problems. She states that the generalized feeling in her chest and in her upper abdomen has ma rkedly improved. Of course, she has been n.p.o. for the good part of the day and also on liquid diet with her presumed diagnosis. She is scheduled for an EGD in the morning and depending on the results, further steps will be taken. HR/MODL Voice ID: [id number] Report ID: [id number]
--- NOTE | 2019-08-28 13:36 | ENDO RPT ---
[address], [address] EGD PROCEDURE REPORT EXAM DATE: 08/28/2019 PATIENT NAME: Diane Carrasco MR#: [id number] BIRTHDATE: 1950 ATTENDING: Ramos Tang Dr STATUS: inpatient - 7 TAWER: Zaida Cooper CST and Junie Ford RN INDICATIONS: The patient is a 68 yr old Female here for an EGD due to GERD, chest pain, and mid epigastric abdominal pain PROCEDURE PERFORMED: EGD with biopsy MEDICATIONS: Per Anesthesia. TOPICAL ANESTHETIC: none CONSENT: The patient understands the risks and benefits of the procedure and understands that these risks include, but are not limited to: sedation, allergic reaction, infection, perforation and/or bleeding. Alternative means of evaluation and treatment include, among others: physical exam, x-rays, and/or surgical intervention. The patient elects to proceed with this endoscopic procedure. DESCRIPTION OF PROCEDURE: During intra-op preparation period all mechanical medical equipment was checked for proper function. Hand hygiene and appropriate measures for infection prevention was taken. Procedure, possible complications, and alternatives including but not limited to the possibility of bleeding, perforation, tear, infection, sepsis, need for surgery, need for blood transfusion, and anesthesia related complications were explained to the patient. After the risks, benefits and alternatives of the procedure were thoroughly explained, Informed consent was verified, confirmed and timeout was successfully executed by the treatment team. The patient was placed in the left lateral position. The patient was anesthetized with topical anesthesia. Through the anesthetized oropharyngeal area, the scope was passed without any difficulty. The Pentax EG-[id number] ([id number]) endoscope was introduced through the mouth and advanced to the pylorus. Retroflexed views revealed a small hiatal hernia. The gastroscope was then slowly withdrawn and removed. LA Class A esophagitis was found in the distal esophagus. Possible Morejon's esophagus was found in the lower esophagus. With jumbo forceps, a biopsy was obtained and sent to pathology. A small hiatal hernia was found Bile fluid was found in the body of the stomach. Moderate gastritis was found in the total stomach. Multiple biopsies were obtained and sent to pathology. An ulcer was found at the pylorus. ADVERSE EVENTS: There were no complications. IMPRESSIONS: 1. LA class A esophagitis in the distal esophagus 2. Possible Morejon's esophagus (< 1 cm) in the lower esophagus, s/p biopsy 3. Small hiatal hernia 4. Large amount of bile fluid in the body/fundus >antrum of the stomach - suctioned out with endoscope 5. Moderate gastritis in the total stomach, s/p biopsies 6. 1 cm ulcer at the pylorus with secondary moderate stenosis (did not attempt to pass with endoscope, with stenosis at 9-11 mm), 50% of the luminal circumference of the pylorus. RECOMMENDATIONS: 1. await biopsy results 2. acid suppression therapy 3. check AM gastrin level REPEAT EXAM: Return in 3 month(s) for EGD. Ramos Tang Dr eSigned: Ramos Tang Dr 08/28/2019 1:36 PM cc: Byron Gannon CPT CODES: ICD9 CODES: PATIENT NAME: Luna Diane D. MR#: [id number]
[2019-08-28 14:06] VITALS: BP 123/66; TEMP 97.6; O2SAT 100
--- NOTE | 2019-08-28 20:04 | PN ---
Date of Progress Note: 08/28/2019 Subjective: Patient states her symptoms have improved considerably. However, on EGD, she had signif icant findings in the duodenum with pyloric ulcer as well and her reflux esophagitis and hiatal herni a. She also had significant fluid retention and has had really intermittent diarrhea and constipatio n, although she says as of late, her bowel movements have been more stable. 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 She was instructed to stay off with minimum of 2, maximum of 6 weeks. Follow up with me in a couple of days and follow up with for repeat EGD in 4-6 weeks and probable colonoscopy at th at time as well. She was discharged to continue on her Prilosec increased to twice a day, . Continue on her beta-ang[place] for blood pressure and Antivert was added to the regimen well. She h as a long history of recurrent episodes of vertigo. Possibly an antispasmodic will be considered, puentes d her visit next week and discharged in good condition. Final Diagnoses: Peptic ulcer disease, pylorospasm, esophagitis, hypertension, controlled. HR/MODL Voice ID: [id number] Report ID: [id number]
== END 2019-08-28 16:57 | disposition home or self-care (01) ==
LOC: ER 09:39 → ERHOLD 10:57 → INTOOBSV 10:57 → 2ND 12:46
PROVIDERS: ADMIT Family Medicine; ATTEND Family Medicine
PROC: 0DB68ZX Excision of Stomach, Via Natural or Artificial Opening Endoscopic, Diagnostic (ICD-10-PCS; 2019-08-28)
PROC: 0DB38ZX Excision of Lower Esophagus, Via Natural or Artificial Opening Endoscopic, Diagnostic (ICD-10-PCS; principal; 2019-08-28 12:30)
DX: K25.9 Gastric ulcer, unspecified as acute or chronic, without hemorrhage or perforation (principal); K31.3 Pylorospasm, not elsewhere classified; K29.60 Other gastritis without bleeding; R42 Dizziness and giddiness; H83.09 Labyrinthitis, unspecified ear; R07.89 Other chest pain; K21.9 Gastro-esophageal reflux disease without esophagitis; K20.8 Other esophagitis; K44.9 Diaphragmatic hernia without obstruction or gangrene
CPT/HCPCS: 96361; 93005; 93017; 93306; 85025 ×2; 80048 ×2; 36415; 83735; 88312; 88313; 85610; 80076; 88305; 84484 ×3; 83880; 71275; 74175; 71045; 93880; 78452; 96374; 99285; 43239; Q9967; J2704; C9113 ×3; J2250; J2785; G0378 ×5; J7120; A9500

== ENCOUNTER 2019-09-06 20:54 | Emergency (ER) | payer OTHER ==
[2019-09-06] MEDS ORDERED: cloNIDine HCL 0.1 MG TAB ONE (21:30)
[2019-09-06 21:33] LABS: Basophils % 1.2 % (0-1.3); Hematocrit 39.9 % (36.0-45.0); Lymphocytes % 43.4 % (15.3-44.8); MPV 9.5 fL (7.6-11.3); RBC Red Blood Cell Count 4.41 M/uL (3.86-4.86)
[2019-09-06 21:34] LABS: Protime INR 0.85
[2019-09-06 22:04] LABS: BUN Blood Urea Nitrogen 7 mg/dL (7-18); Bicarbonate 28 mmol/L (21-32); Glucose Level 108 mg/dL (74-106); NT PRO-BNP 169 pg/mL (<125); Sodium Level 143 mmol/L (136-145); Troponin (Emerg Dept Use Only) < 0.02 ng/mL (0.0-0.045)
[2019-09-06 22:07] LABS: Magnesium 2.3 mg/dL (1.8-2.4); Potassium 3.9 mmol/L (3.5-5.1)
--- NOTE | 2019-09-06 22:51 | ER ---
Nurse's Notes [facility] Name: Diane Carrasco Age: 68 yrs Sex: Female : 1950 Arrival Date: 09/06/2019 Time: 20:55 Bed 4 Private MD: Diagnosis: Essential (primary) hypertension Presentation: 09/05 21:03 Chief complaint: Patient states: They checked her blood pressure at home and it was aj1 219/117. Patient reports headache, anxiety. Coronavirus screen: The patient has NOT traveled to a country currently being monitored by the [facility] within the last 14 days. Ebola Screen: Patient denies travel to an Ebola-affected area in the 21 days before illness onset. Initial Sepsis Screen: Does the patient meet any 2 criteria? No. Patient's initial sepsis screen is negative. Does the patient have a suspected source of infection? No. Patient's initial sepsis screen is negative. Risk Assessment: Do you want to hurt yourself or someone else? Patient reports no desire to harm self or others. 21:03 Method Of Arrival: Ambulatory aj1 21:03 Acuity: THAO 2 aj1 Historical: - Allergies: 21:09 No Known Allergies; aj1 - Home Meds: 21:09 Omeprazole Oral [Active]; metoprolol tartrate 25 mg Oral tab 1 tab 2 times per day aj1 [Active]; - PMHx: 21:09 Arthritis; GERD; Hypertension; aj1 - Immunization history:: Adult Immunizations up to date. - Social history:: Smoking status: Patient reports the use of cigarette tobacco products. Screenin:17 Abuse screen: Denies threats or abuse. Denies injuries from another. Nutritional rv screening: No deficits noted. Tuberculosis screening: No symptoms or risk factors identified. Fall Risk None identified. Assessment: 21:00 General: Appears in no apparent distress. Behavior is calm, cooperative. rv 21:00 Pain: Denies pain. Neuro: Level of Consciousness is awake, alert, obeys commands, rv Oriented to person, place, time, situation. Cardiovascular: Patient's skin is warm and dry. Rhythm is regular. Respiratory: Airway is patent Breath sounds are clear bilaterally. 21:00 General: Appears in no apparent distress. Behavior is cooperative, anxious. Pain: ah Denies pain. Neuro: Level of Consciousness is awake, alert, Oriented to person, place, time, situation. Cardiovascular: Denies chest pain, Heart tones S1 S2 present Capillary refill < 3 seconds Patient's skin is warm and dry. Pulses are palpable in right radial artery and left radial artery. Respiratory: Airway is patent Respiratory effort is even, unlabored, Respiratory pattern is regular, symmetrical, Breath sounds are clear bilaterally. 21:00 GI: No signs and/or symptoms were reported involving the gastrointestinal system. : ah No signs and/or symptoms were reported regarding the genitourinary system. EENT: No signs and/or symptoms were reported regarding the EENT system. Derm: No signs and/or symptoms reported regarding the dermatologic system. Vital Signs: 21:00 BP 205 / 110; Pulse 67; Resp 16; Pulse Ox 98% on R/A; rv 21:03 BP 216 / 94; Pulse 73; Resp 18; Temp 98.5; Pulse Ox 97% on R/A; Weight 58.97 kg (R); aj1 Height 5 ft. 5 in. (165.10 cm) (R); Pain 5/10; 22:00 BP 162 / 79; Pulse 59; Resp 15; Pulse Ox 98% on R/A; rv 22:30 BP 156 / 79; Pulse 57; Resp 13; Pulse Ox 100% on R/A; rv 23:00 BP 161 / 75; Pulse 59; Resp 15; Temp 98.3; Pulse Ox 99% on R/A; rv 21:03 Body Mass Index 21.63 (58.97 kg, 165.10 cm) aj1 ED Course: 20:55 Patient arrived in ED. cf2 21:08 Triage completed. aj1 21:13 Jacquie Mayo FNP-C is [facility]. kb 21:13 Prasad Ortega MD is Attending Physician. kb 21:22 Charito Barrera, RN is Primary Nurse. 21:30 Inserted saline lock: 20 gauge in right antecubital area, using aseptic technique. rv Blood collected. 21:30 Patient has correct armband on for positive identification. bus driver/monitor on. Pulse rv ox on. NIBP on. 22:26 EKG done, by ED staff, reviewed by Prasad Ortega MD. ds4 23:17 IV discontinued, intact, bleeding controlled, No redness/swelling at site. Pressure rv dressing applied. 23:17 No provider procedures requiring assistance completed. rv 23:17 Arm band placed on. rv Administered Medications: 21:26 Drug: cloNIDine 0.1 mg Route: PO; 23:18 Follow up: Response: No adverse reaction; Marked relief of symptoms rv Outcome: 22:50 Discharge ordered by . kb 23:18 Discharged to home ambulatory, with family. rv 23:18 Condition: improved 23:18 Discharge instructions given to patient, Instructed on discharge instructions, follow up and referral plans. Demonstrated understanding of instructions, follow-up care. 23:18 Patient left the ED. rv Signatures: Jacquie Mayo, PRINT AND PATTERN DESIGNER-C PRINT AND PATTERN DESIGNER-Ckb Kristen Grace, RN RN aj1 Aldo Lackey ds4 Manjinder Katz RN RN rv Jesús Lopez cf2 Charito Barrera, RN RN Corrections: (The following items were deleted from the chart) 09/06 00:09/05 22:42 General: Appears in no apparent distress. Behavior is cooperative, anxious, [facility] 09/06 00:09/05 22:42 Pain: Denies pain. [facility] 09/06 00:09/05 22:42 Neuro: Level of Consciousness is awake, alert, Oriented to person, place, ah time, situation, 09/06 00:09/05 22:42 Cardiovascular: Denies chest pain, Heart tones S1 S2 present Capillary ah refill < 3 seconds Patient's skin is warm and dry. Pulses are palpable in right radial artery and left radial artery 09/06 00:09/05 22:42 Respiratory: Airway is patent Respiratory effort is even, unlabored, Respiratory pattern is regular, symmetrical,
--- NOTE | 2019-09-06 22:51 | EDPHYS ---
Physician Documentation [facility] Name: Diane Carrasco Age: 68 yrs Sex: Female : 1950 Arrival Date: 09/06/2019 Time: 20:55 Bed 4 Private MD: ED Physician Prasad Ortega HPI: 09/05 22:10 This 68 yrs old Female presents to ER via Ambulatory with complaints of High kb Blood Pressure, Weakness, Headache. 22:10 The patient has elevated blood pressure and discovered this at home, with a home kb device. Onset: The symptoms/episode began/occurred just prior to arrival. Associated signs and symptoms: Pertinent positives: headache, Pertinent negatives: chest pain, dizziness, dyspnea, lightheadedness, nausea, visual changes, vomiting, weakness. Severity of symptoms: At its worst the blood pressure was 215 mm Hg, in the emergency department the blood pressure is unchanged. The patient has not experienced similar symptoms in the past. The patient has not recently seen a physician. Pt states she was recently diagnosed with hypertension and started on medication. States she always checks her bp before taking her medication in the morning and at night. States the top number is normally 140-150, but tonight it was 215 so she got concerned that it would cause her to have a stroke. Reports she now has a headache. Historical: - Allergies: 21:09 No Known Allergies; aj1 - Home Meds: 21:09 Omeprazole Oral [Active]; metoprolol tartrate 25 mg Oral tab 1 tab 2 times per day aj1 [Active]; - PMHx: 21:09 Arthritis; GERD; Hypertension; aj1 - Immunization history:: Adult Immunizations up to date. - Social history:: Smoking status: Patient reports the use of cigarette tobacco products. ROS: 22:10 Constitutional: Negative for fever, chills, and weight loss, Neck: Negative for injury, kb pain, and swelling, Cardiovascular: Negative for chest pain, palpitations, and edema, Respiratory: Negative for shortness of breath, cough, wheezing, and pleuritic chest pain, Abdomen/GI: Negative for abdominal pain, nausea, vomiting, diarrhea, and constipation, Back: Negative for injury and pain, MS/Extremity: Negative for injury and deformity, Skin: Negative for injury, rash, and discoloration. 22:10 Neuro: Positive for headache, Negative for altered mental status, dizziness, gait disturbance, hearing loss, loss of consciousness, numbness, seizure activity, speech changes, syncope, near syncope, tingling, tinnitus, tremor, visual changes, weakness. Exam: 22:10 Constitutional: This is a well developed, well nourished patient who is awake, alert, kb and in no acute distress. Head/Face: Normocephalic, atraumatic. Eyes: Pupils equal round and reactive to light, extra-ocular motions intact. Lids and lashes normal. Conjunctiva and sclera are non-icteric and not injected. Cornea within normal limits. Periorbital areas with no swelling, redness, or edema. Chest/axilla: Normal chest wall appearance and motion. Nontender with no deformity. No lesions are appreciated. Cardiovascular: Regular rate and rhythm with a normal S1 and S2. No gallops, murmurs, or rubs. Normal PMI, no JVD. No pulse deficits. Respiratory: Lungs have equal breath sounds bilaterally, clear to auscultation and percussion. No rales, rhonchi or wheezes noted. No increased work of breathing, no retractions or nasal flaring. Abdomen/GI: Soft, non-tender, with normal bowel sounds. No distension or tympany. No guarding or rebound. No evidence of tenderness throughout. Back: No spinal tenderness. No costovertebral tenderness. Full range of motion. Skin: Warm, dry with normal turgor. Normal color with no rashes, no lesions, and no evidence of cellulitis. MS/ Extremity: Pulses equal, no cyanosis. Neurovascular intact. Full, normal range of motion. Neuro: Awake and alert, GCS 15, oriented to person, place, time, and situation. Cranial nerves II-XII grossly intact. Motor strength 5/5 in all extremities. Sensory grossly intact. Cerebellar exam normal. Normal gait. 22:41 ECG was reviewed by the Attending Physician. kb Vital Signs: 21:00 BP 205 / 110; Pulse 67; Resp 16; Pulse Ox 98% on R/A; rv 21:03 BP 216 / 94; Pulse 73; Resp 18; Temp 98.5; Pulse Ox 97% on R/A; Weight 58.97 kg (R); aj1 Height 5 ft. 5 in. (165.10 cm) (R); Pain 5/10; 22:00 BP 162 / 79; Pulse 59; Resp 15; Pulse Ox 98% on R/A; rv 22:30 BP 156 / 79; Pulse 57; Resp 13; Pulse Ox 100% on R/A; rv 23:00 BP 161 / 75; Pulse 59; Resp 15; Temp 98.3; Pulse Ox 99% on R/A; rv 21:03 Body Mass Index 21.63 (58.97 kg, 165.10 cm) aj1 MDM: 21:13 Patient medically screened. kb 22:14 Data reviewed: vital signs, nurses notes. Data reviewed: lab test result(s), EKG. Data kb interpreted: Pulse oximetry: on room air is 97 %. Interpretation: normal. 22:49 Counseling: I had a detailed discussion with the patient and/or guardian regarding: the kb historical points, exam findings, and any diagnostic results supporting the discharge/admit diagnosis, lab results, the need for outpatient follow up, a family practitioner, to return to the emergency department if symptoms worsen or persist or if there are any questions or concerns that arise at home. ED course: BP 156/79. Pt states she is feeling better. States she has been stressed and anxious about a lot of stuff. Denies chest pain, shortness of breath. Educated to continue prescribed medication and follow up with Dr Gannon. 09/05 21:14 Order name: Basic Metabolic Panel; Complete Time: 22:08 kb 09/05 21:14 Order name: CBC with Diff; Complete Time: 21:43 kb 09/05 21:14 Order name: Magnesium; Complete Time: 22:08 kb 09/05 21:14 Order name: NT PRO-BNP; Complete Time: 22:08 kb 09/05 21:14 Order name: PT-INR; Complete Time: 21:43 kb 09/05 21:14 Order name: Troponin (emerg Dept Use Only); Complete Time: 22:08 kb 09/05 21:14 Order name: EKG; Complete Time: 21:16 kb 09/05 21:14 Order name: Cardiac monitoring; Complete Time: 21:27 kb 09/05 21:14 Order name: EKG - Nurse/Tech; Complete Time: 21:27 kb 09/05 21:14 Order name: IV Saline Lock; Complete Time: 21:26 kb 03/13 21:14 Order name: Labs collected and sent; Complete Time: 21:27 kb 09/05 21: Order name: O2 Per Protocol; Complete Time: 22:26 kb 09/05 20: Order name: O2 Sat Monitoring; Complete Time: :26 kb EC:41 Rate is 58 beats/min. Rhythm is regular. QRS [place] is Normal. GA interval is normal at kb 122 msec. QRS interval is normal at 72 msec. QT interval is normal at 400 msec. Administered Medications: : Drug: cloNIDine 0.1 mg Route: PO; 23:18 Follow up: Response: No adverse reaction; Marked relief of symptoms rv Disposition: 09/06 03:29 Co-signature as Attending Physician, Prasad Ortega MD I agree with the assessment and 4 plan of care. Disposition: 09/06/19 22:50 Discharged to Home. Impression: Essential (primary) hypertension. - Condition is Stable. - Discharge Instructions: Hypertension, [id number], DASH Eating Plan, Managing Your Hypertension. - Medication Reconciliation Form, Thank You Letter, Antibiotic Education, Prescription Opioid Use form. - Follow up: Emergency Department; When: As needed; Reason: Worsening of condition. Follow up: Private Physician; When: 2 - 3 days; Reason: Recheck today's complaints, Continuance of care, Re-evaluation by your physician. Signatures: Dispatcher [employer] EDJacquie Singh, BROKERAGE CLERK-C BROKERAGE CLERK-Ckb Kristen Grace RN RN aj1 Prasad Ortega MD MD tw4 Manjinder Katz RN RN rv Harris, Amy, RN RN Corrections: (The following items were deleted from the chart) 09/05 21: 22:10 Neuro: Positive for headache, kb kb 23:18 22:50 09/06/2019 22:50 Discharged to Home. Impression: Essential (primary) rv hypertension. Condition is Stable. Forms are Medication Reconciliation Form, Thank You Letter, Antibiotic Education, Prescription Opioid Use. Follow up: Emergency Department; When: As needed; Reason: Worsening of condition. Follow up: Private Physician; When: 2 - 3 days; Reason: Recheck today's complaints, Continuance of care, Re-evaluation by your physician. kb
[2019-09-06 23:32] VITALS: BP 161/75; TEMP 98.3; O2SAT 99
--- NOTE | 2019-09-07 08:28 | EKG ---
Test Date: 2019-09-06 Test Time: 22:20:49 Windows Vmware Administrator: TELLO MEASUREMENT RESULTS: Intervals: Rate: 58 UT: 122 QRSD: 72 QT: 400 QTc: 392 [place]: P: 35 UT: 122 QRS: 24 T: 35 INTERPRETIVE STATEMENTS: Sinus bradycardia Increased R/S ratio in V1, consider early transition or posterior infarct Abnormal ECG Compared to ECG 08/26/2019 10:02:00 Myocardial infarct finding now present Sinus rhythm no longer present Electronically Signed On 09-07-19 08:27:44 CDT by Darian Barbosa
== END 2019-09-06 23:18 | disposition home or self-care (01) ==
LOC: ER 20:54
DX: I10 Essential (primary) hypertension (principal); K21.9 Gastro-esophageal reflux disease without esophagitis; F17.210 Nicotine dependence, cigarettes, uncomplicated
CPT/HCPCS: 36415; 80048; 83735; 83880; 84484; 85025; 85610; 93005; 99284

== ENCOUNTER 2020-03-28 09:53 | Emergency (ER) | payer OTHER ==
[2020-03-28 10:30] LABS: Absolute Lymphocytes (CBC) 1.5 K/uL (0.7-4.9); Basophils % 0.3 % (0-1.3); Lymphocytes % 19.4 % (15.3-44.8); MPV 9.8 fL (7.6-11.3); RBC Red Blood Cell Count 5.17 M/uL (3.86-4.86)
[2020-03-28 10:49] LABS: ALT/SGPT 17 U/L (12-78); AST/SGOT 19 U/L (15-37); BUN Blood Urea Nitrogen 28 mg/dL (7-18); Bicarbonate 21 mmol/L (21-32); Glucose Level 190 mg/dL (74-106); Potassium 3.2 mmol/L (3.5-5.1); Sodium Level 137 mmol/L (136-145)
[2020-03-28] MEDS ORDERED: ONDANSETRON 4 MG/2 ML VIAL ONE (10:49)
[2020-03-28] MEDS ORDERED: FAMOTIDINE 20 MG/2 ML VIAL IV ONE (10:49)
[2020-03-28] MEDS ORDERED: NA CHLORIDE 0.9% 500 ML ONE (10:49)
[2020-03-28 10:50] LABS: Albumin 3.9 g/dL (3.4-5.0); Alkaline Phosphatase 139 U/L (45-117); Bilirubin Direct < 0.1 mg/dL (0-0.2); Bilirubin Total 0.4 mg/dL (0.2-1.0); Lipase 48 U/L (73-393); Protein, Total 8.5 g/dL (6.4-8.2)
--- NOTE | 2020-03-28 11:38 | RAD REPORT ---
EXAM DESCRIPTION: CT - Abdomen Pelvis W Contrast - 03/28/2020 11:19 am CLINICAL HISTORY: Abdominal pain COMPARISON: 2015 TECHNIQUE: Computed axial tomography of the abdomen pelvis was obtained. 100 cc Isovue-300 was admin istered intravenously. Oral contrast was not requested which limits evaluation of bowel. All CT scans are performed using dose optimization technique as appropriate and may include automated exposure control or mA/KV adjustment according to patient size. FINDINGS: The liver, spleen, pancreas, adrenal and kidneys appear unremarkable. There is no evidence of diverticulitis. Diverticulum stems from the duodenum. Wall of the distal stomach appears mildly thickened. The wall of the transverse colon is mildly to moderately thickened. Mild thickening of portions of th e wall of the left colon. Hysterectomy. Small umbilical hernia IMPRESSION: Mild to moderate colitis Mild thickening of the wall of the distal stomach could be secondary to incomplete distention or path ology such as inflammation/mass
[2020-03-28] MEDS ORDERED: POTASSIUM CL SA 10 MEQ TAB PO ONE (11:54)
[2020-03-28] MEDS ORDERED: METOCLOPRAMIDE 10 MG/2mL INJ ONE (12:02)
[2020-03-28] MEDS ORDERED: NA CHLORIDE 0.9% 100 ML IV ONE (12:03)
[2020-03-28] MEDS ORDERED: metroNIDAZOLE 500 MG TABLET ONE (12:37)
[2020-03-28] MEDS ORDERED: CIPROFLOXACIN HCL 500 MG TAB ONE (12:37)
--- NOTE | 2020-03-28 14:21 | EDPHYS ---
Physician Documentation [facility] Name: Diane Carrasco Age: 69 yrs Sex: Female : 1950 Arrival Date: 03/28/2020 Time: 09:55 Bed 4 Private MD: Byron Gannon ED Physician Adriel Burns HPI: 03/28 11:53 This 69 yrs old Female presents to ER via Ambulatory with complaints of kdr Nausea/Vomiting/Diarrhea. 11:53 The patient presents to the emergency department with nausea, that is mild, vomiting, kdr that is intermittent, diarrhea, that is intermittent, abdominal pain, of the right lower quadrant and abdomen diffusely. Onset: The symptoms/episode began/occurred gradually, 4 day(s) ago. Possible causes: unknown, bad food exposure. The symptoms are aggravated by food , The symptoms are alleviated by nothing. Associated signs and symptoms: Pertinent positives: abdominal pain, diarrhea, nausea, vomiting, Pertinent negatives: anorexia, constipation, fever, GI bleeding, hematuria, vaginal discharge. Severity of symptoms: At their worst the symptoms were mild moderate just prior to arrival, in the emergency department the symptoms are unchanged. The patient has not experienced similar symptoms in the past. The patient has not recently seen a physician. Historical: - Allergies: 10:14 No Known Allergies; aa5 - Home Meds: 10:14 gabapentin 100 mg oral cap 3 times per day [Active]; duloxetine 30 mg oral cpDR once aa5 daily [Active]; metoprolol tartrate 50 mg Oral tab 1 tab 2 times per day [Active]; omeprazole 40 mg Oral cpDR 2 times per day [Active]; - PMHx: 10:14 Arthritis; GERD; Hypertension; aa5 - PSHx: 10:14 Appendectomy; aa5 - Immunization history:: Adult Immunizations unknown. - Social history:: Smoking status: Patient reports the use of cigarette tobacco products, 1 pack a week . ROS: 11:53 Constitutional: Negative for fever, chills, and weight loss, Eyes: Negative for injury, kdr pain, redness, and discharge, Neck: Negative for injury, pain, and swelling, Cardiovascular: Negative for chest pain, palpitations, and edema, Respiratory: Negative for shortness of breath, cough, wheezing, and pleuritic chest pain, Back: Negative for injury and pain, : Negative for injury, bleeding, discharge, and swelling, MS/Extremity: Negative for injury and deformity, Skin: Negative for injury, rash, and discoloration, Neuro: Negative for headache, weakness, numbness, tingling, and seizure activity. Psych: Negative for depression, anxiety, suicide ideation, homicidal ideation, and hallucinations, Allergy/Immunology: Negative for hives, rash, and allergies, Endocrine: Negative for neck swelling, polydipsia, polyuria, polyphagia, and marked weight changes, Hematologic/Lymphatic: Negative for swollen nodes, abnormal bleeding, and unusual bruising. 11:53 Abdomen/GI: Positive for abdominal pain, nausea, vomiting, and diarrhea, abdominal cramps, Negative for constipation, dysphagia, hematemesis, black/tarry stool, rectal pain, rectal bleeding. Exam: 11:53 Constitutional: This is a well developed, well nourished patient who is awake, alert, kdr and in no acute distress. Head/Face: Normocephalic, atraumatic. Eyes: Pupils equal round and reactive to light, extra-ocular motions intact. Lids and lashes normal. Conjunctiva and sclera are non-icteric and not injected. Cornea within normal limits. Periorbital areas with no swelling, redness, or edema. Neck: Trachea midline, no thyromegaly or masses palpated, and no cervical lymphadenopathy. Supple, full range of motion without nuchal rigidity, or vertebral point tenderness. No Meningismus. Chest/axilla: Normal chest wall appearance and motion. Nontender with no deformity. No lesions are appreciated. Cardiovascular: Regular rate and rhythm with a normal S1 and S2. No gallops, murmurs, or rubs. Normal PMI, no JVD. No pulse deficits. Respiratory: Lungs have equal breath sounds bilaterally, clear to auscultation and percussion. No rales, rhonchi or wheezes noted. No increased work of breathing, no retractions or nasal flaring. Back: No spinal tenderness. No costovertebral tenderness. Full range of motion. Skin: Warm, dry with normal turgor. Normal color with no rashes, no lesions, and no evidence of cellulitis. MS/ Extremity: Pulses equal, no cyanosis. Neurovascular intact. Full, normal range of motion. Neuro: Awake and alert, GCS 15, oriented to person, place, time, and situation. Cranial nerves II-XII grossly intact. Motor strength 5/5 in all extremities. Sensory grossly intact. Cerebellar exam normal. Normal gait. Psych: Awake, alert, with orientation to person, place and time. Behavior, mood, and affect are within normal limits. 11:53 Abdomen/GI: Inspection: abdomen appears normal, Bowel sounds: active, Palpation: soft, mild abdominal tenderness, in the right lower quadrant and abdomen diffusely, rebound tenderness, is not appreciated. Vital Signs: 09:58 BP 123 / 73; Pulse 92; Resp 18 S; Temp 98.3(O); Pulse Ox 99% on R/A; Weight 58.97 kg aa5 (R); Height 5 ft. 5 in. (165.10 cm) (R); Pain 0/10; 11:40 BP 134 / 73; Pulse 73; Resp 15; Pulse Ox 99% ; jl7 12:27 BP 149 / 79; Pulse 73; Resp 17; Pulse Ox 99% ; jl7 13:34 BP 145 / 78; Pulse 63; Resp 17; Pulse Ox 99% ; jl7 14:40 BP 136 / 72; Pulse 63; Resp 15; Pulse Ox 99% ; jl7 09:58 Body Mass Index 21.63 (58.97 kg, 165.10 cm) aa5 MDM: 11:53 Data reviewed: vital signs, nurses notes, lab test result(s), radiologic studies. kdr Counseling: I had a detailed discussion with the patient and/or guardian regarding: the historical points, exam findings, and any diagnostic results supporting the discharge/admit diagnosis, lab results, radiology results, the need for outpatient follow up. 14:20 Patient medically screened. kdr 03/28 10:08 Order name: Basic Metabolic Panel; Complete Time: 11:35 kdr 03/28 10:08 Order name: CBC with Diff; Complete Time: 11:35 kdr 03/28 10:08 Order name: Hepatic Function; Complete Time: 11:35 kdr 03/28 10:08 Order name: Lipase; Complete Time: 11:35 kdr 03/28 10:20 Order name: CT Abd/Pelvis - IV Contrast Only; Complete Time: 11:51 kdr 03/28 10:08 Order name: IV Saline Lock; Complete Time: 10:20 kdr 03/28 10:08 Order name: Labs collected and sent; Complete Time: 10:20 kdr Administered Medications: 10:48 Drug: NS 0.9% 500 ml Route: IV; Rate: bolus; Site: right wrist; jl7 11:45 Follow up: Response: No adverse reaction; IV Status: Completed infusion; IV Intake: jl7 500ml 10:48 Drug: Zofran (Ondansetron) 4 mg Route: IVP; Site: right wrist; jl7 11:00 Follow up: Response: No adverse reaction; Nausea is decreased jl7 10:48 Drug: Pepcid 10 mg Route: IVP; Site: right wrist; jl7 11:45 Follow up: Response: No adverse reaction; No change in condition jl7 11:53 Drug: Reglan 10 mg Route: IVP; Site: right wrist; jl7 12:00 Follow up: Response: No adverse reaction; Nausea is decreased jl7 12:27 Drug: Cipro 500 mg Route: PO; ca1 14:29 Follow up: Response: No adverse reaction jl7 12:30 Drug: Flagyl 500 mg Route: PO; ca1 14:29 Follow up: Response: No adverse reaction jl7 14:00 Drug: Potassium Chloride 40 mEq Route: PO; jl7 14:29 Follow up: Response: No adverse reaction jl7 Disposition: 03/28/20 14:20 Discharged to Home. Impression: Vomiting, Right sided colitis. - Condition is Stable. - Discharge Instructions: Nausea and Vomiting, Adult, [id number], Diarrhea, Adult, [id number]. - Prescriptions for Flagyl 500 mg Oral Tablet - take 1 tablet by ORAL route every 6 hours for 7 days; 28 tablet. Tylenol- Codeine #3 300-30 mg Oral Tablet - take 2 tablets by ORAL route every 6 hours As needed One or two tabs PO Q 4-6 hours prn pain; 16 tablet. Zofran 4 mg Oral Tablet - take 1 tablet by ORAL route every 4-6 hours As needed; 16 tablet. Cipro 500 mg Oral Tablet - take 1 tablet by ORAL route every 12 hours for 7 days; 14 tablet. - Medication Reconciliation Form, Thank You Letter, Antibiotic Education, Prescription Opioid Use form. - Follow up: Byron Gannon MD; When: 2 - 3 days; Reason: If symptoms return, Further diagnostic work-up, Recheck today's complaints, Continuance of care, Re-evaluation by your physician. - Problem is new. - Symptoms have improved. Signatures: Dispatcher [employer] EDMS Adriel Burns MD MD kdr Nicole Doherty RN RN aa5 Chiquita Rodríguez RN RN jl7 Suellen Siddiqui RN RN ca1 Corrections: (The following items were deleted from the chart) 14:40 14:20 03/28/2020 14:20 Discharged to Home. Impression: Vomiting; Right sided colitis. jl7 Condition is Stable. Forms are Medication Reconciliation Form, Thank You Letter, Antibiotic Education, Prescription Opioid Use. Follow up: Byron Gannon; When: 2 - 3 days; Reason: If symptoms return, Further diagnostic work-up, Recheck today's complaints, Continuance of care, Re-evaluation by your physician. Problem is new. Symptoms have improved. kdr
--- NOTE | 2020-03-28 14:21 | ER ---
Nurse's Notes [facility] Name: Diane Carrasco Age: 69 yrs Sex: Female : 1950 Arrival Date: 03/28/2020 Time: 09:55 Bed 4 Private MD: Byron Gannon Diagnosis: Vomiting;Right sided colitis Presentation: 03/28 09:58 Chief complaint: Patient states: nausea/vomiting/diarrhea that began 3 days ago. Pt aa5 states "I think I have food poisoning". Pt denies cough, denies fever. 09:58 Coronavirus screen: diarrhea, nausea, vomiting. Client presents with at least one sign aa5 or symptom that may indicate coronavirus-19. Standard/surgical mask placed on the client. Provider contacted for isolation considerations. Ebola Screen: Patient negative for fever greater than or equal to 101.5 degrees Fahrenheit, and additional compatible Ebola Virus Disease symptoms. Initial Sepsis Screen: Does the patient meet any 2 criteria? No. Patient's initial sepsis screen is negative. Does the patient have a suspected source of infection? No. Patient's initial sepsis screen is negative. Risk Assessment: Do you want to hurt yourself or someone else? Patient reports no desire to harm self or others. Onset of symptoms was March 2020. 09:58 Acuity: THAO 3 aa5 09:58 Method Of Arrival: Ambulatory aa5 Historical: - Allergies: 10:14 No Known Allergies; aa5 - Home Meds: 10:14 gabapentin 100 mg oral cap 3 times per day [Active]; duloxetine 30 mg oral cpDR once aa5 daily [Active]; metoprolol tartrate 50 mg Oral tab 1 tab 2 times per day [Active]; omeprazole 40 mg Oral cpDR 2 times per day [Active]; - PMHx: 10:14 Arthritis; GERD; Hypertension; aa5 - PSHx: 10:14 Appendectomy; aa5 - Immunization history:: Adult Immunizations unknown. - Social history:: Smoking status: Patient reports the use of cigarette tobacco products, 1 pack a week . Screenin:00 Abuse screen: Denies threats or abuse. Denies injuries from another. Nutritional jl7 screening: No deficits noted. Tuberculosis screening: No symptoms or risk factors identified. Fall Risk IV access (20 points). Total Dee Fall Scale indicates No Risk (0-24 pts). Assessment: 10:05 General: Appears in no apparent distress. uncomfortable, Behavior is calm, cooperative, jl7 appropriate for age. Pain: Denies pain. Neuro: Level of Consciousness is awake, alert, obeys commands, Oriented to person, place, time, situation. Cardiovascular: Patient's skin is warm and dry. Respiratory: Airway is patent Respiratory effort is even, unlabored, Respiratory pattern is regular, symmetrical. GI: Abdomen is non-distended, Stools are reported to be diarrhea. Reports diarrhea, nausea, vomiting. Derm: Skin is pink, warm \\T\\ dry. 11:50 Reassessment: Pt reports increased nausea, ERD notified, see MAR for orders. jl7 12:26 Reassessment: Dr. Burns at bedside discussing results and POC. jl7 12:30 Reassessment: PT able to tolerate water and tabs at this time. No report of nausea. ca1 14:00 Reassessment: Patient appears in no apparent distress at this time. Patient and/or jl7 family updated on plan of care and expected duration. Pain level reassessed. Patient is alert, oriented x 3, equal unlabored respirations, skin warm/dry/pink. Patient states feeling better. Patient states symptoms have improved. Vital Signs: 09:58 BP 123 / 73; Pulse 92; Resp 18 S; Temp 98.3(O); Pulse Ox 99% on R/A; Weight 58.97 kg aa5 (R); Height 5 ft. 5 in. (165.10 cm) (R); Pain 0/10; 11:40 BP 134 / 73; Pulse 73; Resp 15; Pulse Ox 99% ; jl7 12:27 BP 149 / 79; Pulse 73; Resp 17; Pulse Ox 99% ; jl7 13:34 BP 145 / 78; Pulse 63; Resp 17; Pulse Ox 99% ; jl7 14:40 BP 136 / 72; Pulse 63; Resp 15; Pulse Ox 99% ; jl7 09:58 Body Mass Index 21.63 (58.97 kg, 165.10 cm) aa5 ED Course: 09:55 Patient arrived in ED. ag5 09:56 Byron Gannon MD is Private Physician. ag5 09:58 Arm band placed on Patient placed in an exam room, on a stretcher. aa5 10:07 Adriel Burns MD is Attending Physician. kdr 10:09 Triage completed. aa5 10:19 Chiquita Rodríguez, ALONDRA is Primary Nurse. jl7 10:21 Initial lab(s) drawn, by me, sent to lab. Inserted saline lock: 20 gauge in right em1 wrist, using aseptic technique. Blood collected. 11:00 Patient has correct armband on for positive identification. Bed in low position. Call jl7 light in reach. Side rails up X 1. Pulse ox on. NIBP on. Warm blanket given. 11:19 CT completed. Patient tolerated procedure well. Patient moved back from CT. bq 11:19 CT Abd/Pelvis - IV Contrast Only In Process Unspecified. EDMS 14:18 Byron Gannon MD is Referral Physician. kdr 14:40 No provider procedures requiring assistance completed. IV discontinued, intact, jl7 bleeding controlled, No redness/swelling at site. Pressure dressing applied. Administered Medications: 10:48 Drug: NS 0.9% 500 ml Route: IV; Rate: bolus; Site: right wrist; jl7 11:45 Follow up: Response: No adverse reaction; IV Status: Completed infusion; IV Intake: jl7 500ml 10:48 Drug: Zofran (Ondansetron) 4 mg Route: IVP; Site: right wrist; jl7 11:00 Follow up: Response: No adverse reaction; Nausea is decreased jl7 10:48 Drug: Pepcid 10 mg Route: IVP; Site: right wrist; jl7 11:45 Follow up: Response: No adverse reaction; No change in condition jl7 11:53 Drug: Reglan 10 mg Route: IVP; Site: right wrist; jl7 12:00 Follow up: Response: No adverse reaction; Nausea is decreased jl7 12:27 Drug: Cipro 500 mg Route: PO; ca1 14:29 Follow up: Response: No adverse reaction jl7 12:30 Drug: Flagyl 500 mg Route: PO; ca1 14:29 Follow up: Response: No adverse reaction jl7 14:00 Drug: Potassium Chloride 40 mEq Route: PO; jl7 14:29 Follow up: Response: No adverse reaction jl7 Intake: 11:45 IV: 500ml; Total: 500ml. jl7 Outcome: 14:20 Discharge ordered by . kdr 14:40 Discharged to home ambulatory. jl7 14:40 Condition: stable 14:40 Discharge instructions given to patient, Instructed on discharge instructions, follow up and referral plans. medication usage, Demonstrated understanding of instructions, follow-up care, medications, Prescriptions given X 4. 14:40 Patient left the ED. jl7 Signatures: Dispatcher [employer] EDMS Adriel Burns MD MD kdr Quilty, Memo Ely em1 Nicole Doherty RN RN aa5 Chiquita Rodríguez RN RN jl7 Suellen Siddiqui RN RN ca1 Pravin Lozada [facility]
[2020-03-28 14:59] VITALS: TEMP 98.3; O2SAT 99
[2020-03-28 15:05] VITALS: BP 136/72
== END 2020-03-28 14:40 | disposition home or self-care (01) ==
LOC: ER 09:53
DX: K52.9 Noninfective gastroenteritis and colitis, unspecified (principal); I10 Essential (primary) hypertension; K21.9 Gastro-esophageal reflux disease without esophagitis
CPT/HCPCS: 96361; 85025; 80048; 36415; 80076; 83690; 74177; 96375; 96374; 99284; Q9967; J2765; J7040; J2405

== ENCOUNTER 2023-02-13 14:05 | Emergency (ER) | payer OTHER ==
--- OUTSIDE RECORDS SUMMARY | 2023-02-13 14:09 | XMS REPORT | Continuity of Care Document ---
:1950 Author Organization [facility] t Address [address] [place] [address] [address] [place] [address] Care Team Providers Name Role Phone SANDRITA GANNON Primary Care Physician Unavailable Sandrita Gannon Attending Clinician Unavailable ALETHA WADE Attending Clinician Unavailable Aletha Morin Attending Clinician ALETHA WADE Admitting Clinician Unavailable Payers Payer Name Policy Type Policy Number Effective Date Expiration Date S ource MEDICARE PART A [id number] 2016 \T\ B 00:00:00 Problems Condition Condition Condition Status Onset Resolution Last Treating Co mments Source Name Details Category Date Date Treatment Clinician Date No known No known Disease Unive rs active active ity of problems problems [facility] Allergies, Adverse Reactions, Alerts Allergy Allergy Status Severity Reaction(s) Onset Inactive Treating Comm ents Source Name Type Date Date Clinician NO KNOWN Drug Active Univers ALLERGIE Class ity of S [facility] Social History Social Habit Start Date Stop Date Quantity Comments Source Exposure to 2021-10-10 2021-10-20 Unable to assess Univers ity of SARS-CoV-2 00:00:00 22:57:00 [facility] (event) Branch Sex Ass[birth year] Universit y of 00:00:00 00:00:00 [facility] Smoking Status Start Date Stop Date Source Unknown if ever smoked [facility] Medications Ordered Filled Start Stop Current Ordering Indication Dosage Frequency Signature Comments Components Source Medication Medication Date Date Medication? Clinician (SIG) Name Name diazePAM 2021- 5mg 5 mg, Univers (VALIUM) 4-28 - Oral, ity of tablet 5 mg 06:45: 05:37 [place] dose, On Medical [place] [facility] 10/21/21 at 0145, ANN MARIE HYDROcodone 2021- No 1{tbl} 1 tablet, Univers -acetaminop 10-21 Oral, ity of hen (NORCO 05:30: 04:30 ONCE, 1 [place] 5) 5-325 mg 00 :00 dose, On Medi yoli tablet 1 [place] [facility] tablet 10/21/21 at 0030, ANN MARIE diazePAM 5 Yes [id number] May take 1 Univers mg tablet 10-21 [id number] tablet ity of 00:00: three [place] 00 times a Medical day as Branch needed for spasm, do not take within 2 hours of tylenol with codeine acetaminoph 2021- No 4647 1{tbl} Take 1 U nivers en-codeine 10-21 tablet by ity of 300-30 mg 00:00: 04:59 mouth [place] tablet 00 :00 every 6 Medical (six) Branch hours as needed for Pain (scale 7-10) for up to 7 days. Indication s: acute pain Vital Signs Vital Name Observation Time Observation Value Comments Source Systolic blood 2021-10-21 07:47:00 130 mm[Hg] [facility] Diastolic blood 2021-10-21 07:47:00 71 mm[Hg] [facility] Heart rate 2021-10-21 07:47:00 79 /min [facility] Respiratory rate 2021-10-21 07:47:00 18 /min [facility] Oxygen saturation in 2021-10-21 07:47:00 91 /min [facility] Arterial blood by [facility] Pulse oximetry Branch Body temperature 2021-10-21 04:02:00 35.89 [place] [facility] Body height 2021-10-21 04:02:00 165.1 cm [facility] Body weight 2021-10-21 04:02:00 68.04 kg [facility] BMI 2021-10-21 04:02:00 24.96 kg/m2 [facility] [place] [facility] Procedures Procedure Date / Time Performed Performing Clinician Sour e XR PELVIS <3 VW 2021-10-21 06:30:00 Aletha Wade Childress o [facility] CT KNEE LEFT WO 2021-10-21 06:14:15 Aletha Wade Childress o [facility] XR KNEE <3 VW LEFT 2021-10-21 04:49:00 Aletha Wade [facility] Encounters Start End Encounter Admission Attending Care Care Encounter Source Date/Time Date/Time Type Type Clinicians Facility Department ID 2021-12-20 Outpatient Teressa, [facility] [id number] 2 Common 08:59:02 Sandrita [id number] Spirit - [facility] 2021-10-20 2021-10-21 Emergency X [facility] ERT [id number] Univers 23:07:00 02:50:[address] [facility] 2021-10-20 2021-10-21 Emergency [facility] [id number] Univers 23:07:00 02:50:00 Aletha MARIA [id number] i ty [facility] [id number] [facility] [id number] [facility] 084 Branch Results This patient has no known results.
--- NOTE | 2023-02-13 15:31 | RAD REPORT ---
EXAM DESCRIPTION: CT - Head Brain Wo Cont - 02/13/2023 3:13 pm CLINICAL HISTORY: Syncope COMPARISON: [id number] TECHNIQUE: Computed axial tomography of the head was obtained. IV contrast was not requested. All CT scans are performed using dose optimization technique as appropriate and may include automated exposure control or mA/KV adjustment according to patient size. FINDINGS: An intracranial bleed is not seen The ventricles are normal in caliber No extra-axial fluid collection is noted. No significant hypodensity brain noted. Fluid within the sinuses/ mastoids is not seen. IMPRESSION: No acute intracranial abnormality is seen If patient's symptoms persist MRI of the brain would be recommended
[2023-02-13] MEDS ORDERED: ASPIRIN 81 MG CHEWABLE TABLET ONE (17:34)
[2023-02-13 17:37] LABS: Absolute Lymphocytes (CBC) 3.5 K/uL (0.7-4.9); Hematocrit 41.1 % (36.0-45.0); Lymphocytes % 36.9 % (15.3-44.8); MCV 90.5 fL (80-100); MPV 9.1 fL (7.6-11.3); Platelets 330 thou/uL (152-406); RBC Red Blood Cell Count 4.54 M/uL (3.86-4.86)
[2023-02-13 17:38] LABS: Protime INR 0.86
--- NOTE | 2023-02-13 17:58 | RAD REPORT ---
EXAM DESCRIPTION: Trey Single View02/13/2023 5:28 pm CLINICAL HISTORY: sob COMPARISON: 2019 FINDINGS: The lungs appear clear of acute infiltrate. The heart is normal size IMPRESSION: No acute abnormalities displayed
[2023-02-13 18:09] LABS: ALT/SGPT 25 U/L (13-56); Albumin 3.7 g/dL (3.4-5.0); Alkaline Phosphatase 146 U/L (45-117); BUN Blood Urea Nitrogen 9 mg/dL (7-18); Bicarbonate 24 mEq/L (21-32); Bilirubin Total 0.3 mg/dL (0.2-1.0); Glomerular Filtration Rate 88 ml/min (=/>90); Glucose Level 123 mg/dL (74-106); NT PRO-BNP 295 pg/mL (<125); Protein, Total 7.6 g/dL (6.4-8.2); Sodium Level 139 mEq/L (136-145); Troponin High Sensitivity 4.6 pg/mL (<58.9)
[2023-02-13 18:10] LABS: AST/SGOT 24 U/L (15-37); Bilirubin Direct < 0.1 mg/dL (0-0.2); Bilirubin Indirect, Calculated ND mg/dL (0.2-0.8); Magnesium 2.2 mg/dL (1.6-2.4); Potassium 4.4 mEq/L (3.5-5.1)
--- NOTE | 2023-02-13 20:22 | ER ---
Nurse's Notes [facility] Name: Diane Carrasco Age: 72 yrs Sex: Female : 1950 Arrival Date: 02/13/2023 Time: 14:05 Bed 8 Private MD: Diagnosis: Syncope Near;Shortness of breath Presentation: 02/13 14:20 Ebola Screen: Patient denies travel to an Ebola-affected area in the 21 days before ll1 illness onset. Initial Sepsis Screen: Does the patient meet any 2 criteria? No. Patient's initial sepsis screen is negative. Risk Assessment: Do you want to hurt yourself or someone else? Patient reports no desire to harm self or others. 14:20 Method Of Arrival: Ambulatory ll1 14:29 Chief complaint: Patient states: SOB and SOB with exertion for 10 days. R eye started ll1 to have spots in her vision, flashing white lights (lasted 5 minutes). + ARANA now. Had sinus infection 2 weeks ago. Coronavirus screen: Client denies travel out of the [place] in the last 14 days. At this time, the client does not indicate any symptoms associated with coronavirus-19. Initial Sepsis Screen: Does the patient have a suspected source of infection? No. Patient's initial sepsis screen is negative. Onset of symptoms was February 03, 2023. 14:29 Acuity: THAO 2 ll1 Triage Assessment: 20:41 Respiratory: Onset: The symptoms/episode began/occurred today. jw7 20:41 Respiratory: Reports. jw7 20:42 Respiratory: Reports shortness of breath on exertion R eye started having spots in her jw7 vision, with flashing white lights that lasted 5 minutes with onset of a ARANA the patient has mild shortness of breath. Historical: - Allergies: 14:19 No Known Allergies; ll1 - PMHx: 14:19 Arthritis; GERD; Hypertension; ll1 - Immunization history:: Adult Immunizations up to date. - Social history:: Smoking status: Patient denies any tobacco usage or history of. - Family history:: not pertinent. Screenin:49 [facility] ED Fall Risk Assessment (Adult) History of falling in the last 3 months, ld1 including since admission No falls in past 3 months (0 pts). Abuse screen: Denies threats or abuse. Denies injuries from another. Nutritional screening: No deficits noted. Tuberculosis screening: No symptoms or risk factors identified. Assessment: 18:48 General: Appears in no apparent distress. comfortable, Behavior is calm, cooperative, ld1 appropriate for age. Pain: Denies pain. Neuro: Level of Consciousness is awake, alert, obeys commands, Oriented to person, place, time, situation. Cardiovascular: Capillary refill < 3 seconds Patient's skin is warm and dry. Rhythm is sinus rhythm. Respiratory: Airway is patent Respiratory effort is even, unlabored, Breath sounds are clear bilaterally. GI: Abdomen is flat, non-distended. : No signs and/or symptoms were reported regarding the genitourinary system. EENT: No signs and/or symptoms were reported regarding the EENT system. Derm: No signs and/or symptoms reported regarding the dermatologic system. Musculoskeletal: No signs and/or symptoms reported regarding the musculoskeletal system. 19:49 Reassessment: Patient appears in no apparent distress at this time. No changes from [facility] previously documented assessment. Patient and/or family updated on plan of care and expected duration. Pain level reassessed. Patient is alert, oriented x 3, equal unlabored respirations, skin warm/dry/pink. 20:39 Reassessment: Patient appears in no apparent distress at this time. Patient and/or jw7 family updated on plan of care and expected duration. Pain level reassessed. Patient is alert, oriented x 3, equal unlabored respirations, skin warm/dry/pink. Patient states feeling better. Patient states symptoms have improved. Vital Signs: 08:00 BP 165 / 96; Pulse 67; Resp 17 S; Pulse Ox 99% on R/A; jw7 14:29 BP 179 / 88; Pulse 73; Resp 17; Temp 97.3; Pulse Ox 98% on R/A; Pain 5/10; ll1 17:52 BP 172 / 85; Pulse 66; Resp 18; Pulse Ox 99% on R/A; ld1 18:48 BP 167 / 91; Pulse 64; Resp 18; Pulse Ox 99% on R/A; ld1 14:29 Pain Scale: Adult ll1 ED Course: 14:11 Patient arrived in ED. im 14:11 Moises Ocampo MD is Attending Physician. cp3 14:20 Arm band placed on. ll1 14:31 Triage completed. ll1 15:14 CT Head Brain wo Cont In Process Unspecified. EDMS 16:25 Radiology exam delayed due to pt was not found in lobby 1419. az 17:06 Jorge Rehman, RN is Primary Nurse. bp 17:23 Inserted saline lock: 22 gauge in right forearm, using aseptic technique. Blood bp collected. 17:29 XRAY Chest (1 view) In Process Unspecified. EDMS 18:49 Patient has correct armband on for positive identification. Placed in gown. Bed in low ld1 position. Call light in reach. Side rails up X2. monitoring engineer on. Pulse ox on. NIBP on. Door closed. Noise minimized. Warm blanket given. 18:49 No provider procedures requiring assistance completed. ld1 20:20 Byron Gannon MD is Referral Physician. cp3 20:41 Provided Education on: discharge instructions and medication. jw7 20:41 IV discontinued, intact, bleeding controlled, No redness/swelling at site. Pressure jw7 dressing applied. Administered Medications: 17:39 Drug: Aspirin PO Chewable Tablet 324 mg Route: PO; ld1 20:39 Follow up: Response: No adverse reaction jw7 19:57 CANCELLED (Physician Discretion): Decadron - Dexamethasone IVP 10 mg IVP once cp3 20:39 Drug: Furosemide PO 40 mg Route: PO; jw7 20:39 Follow up: Response: No adverse reaction jw7 Medication: 20:43 VIS not applicable for this client. jw7 Outcome: 20:21 Discharge ordered by . cp3 20:40 Discharged to home ambulatory. jw7 20:40 Condition: stable 20:40 Discharge instructions given to patient, Instructed on discharge instructions, follow up and referral plans. medication usage, Demonstrated understanding of instructions, follow-up care, medications, Prescriptions given X 1. 20:44 Patient left the ED. jw7 Signatures: Dispatcher [employer] EDVT Moises Ocampo MD MD cp3 Jorge Rehman, RN RN Oly Chavez Lynsay, RN RN ll1 Ailin Vargas RN RN ld1 Grecia Odom RN RN jw7 Kerrie Henry
--- NOTE | 2023-02-13 20:22 | EDPHYS ---
Physician Documentation [facility] Name: Diane Carrasco Age: 72 yrs Sex: Female : 1950 Arrival Date: 02/13/2023 Time: 14:05 Bed 8 Private MD: ED Physician Moises Ocampo HPI: 02/13 17:58 This 72 yrs old Female presents to ER via Ambulatory with complaints of Shortness Of cp3 Breath, Eye Problem. 17:58 Patient is a 72-year-old female who presents to the ED with dyspnea on exertion and cp3 near syncopal episode this morning. Patient is a patient of Dr. Gannon. Patient endorses that she has had the dyspnea exertion for the last 5 days. Today she went to stand up and felt dizzy lightheaded and like the room was spinning and saw flashes of light in the eye like she was in a pass out but did not pass out. Patient denies pain, shortness of breath, chest pain, palpitations. No neurologic change. Historical: - Allergies: 14:19 No Known Allergies; ll1 - PMHx: 14:19 Arthritis; GERD; Hypertension; ll1 - Immunization history:: Adult Immunizations up to date. - Social history:: Smoking status: Patient denies any tobacco usage or history of. - Family history:: not pertinent. ROS: 17:58 Constitutional: Negative for fever, chills, and weight loss, Eyes: Negative for injury, cp3 pain, redness, and discharge, ENT: Negative for injury, pain, and discharge, Neck: Negative for injury, pain, and swelling, Abdomen/GI: Negative for abdominal pain, nausea, vomiting, diarrhea, and constipation, Back: Negative for injury and pain, : Negative for injury, bleeding, discharge, and swelling, MS/Extremity: Negative for injury and deformity, Skin: Negative for injury, rash, and discoloration, Psych: Negative for depression, anxiety, suicide ideation, homicidal ideation, and hallucinations, Allergy/Immunology: Negative for hives, rash, and allergies, Endocrine: Negative for neck swelling, polydipsia, polyuria, polyphagia, and marked weight changes, Hematologic/Lymphatic: Negative for swollen nodes, abnormal bleeding, and unusual bruising. 17:58 Cardiovascular: Positive for orthopnea. 17:58 Respiratory: Positive for dyspnea on exertion. 17:58 Neuro: Positive for dizziness, near syncope. Exam: 17:58 Constitutional: This is a well developed, well nourished patient who is awake, alert, cp3 and in no acute distress. Head/Face: Normocephalic, atraumatic. Eyes: Pupils equal round and reactive to light, extra-ocular motions intact. Lids and lashes normal. Conjunctiva and sclera are non-icteric and not injected. Cornea within normal limits. Periorbital areas with no swelling, redness, or edema. ENT: Nares patent. No nasal discharge, no septal abnormalities noted. Tympanic membranes are normal and external auditory canals are clear. Oropharynx with no redness, swelling, or masses, exudates, or evidence of obstruction, uvula midline. Mucous membranes moist. Neck: Trachea midline, no thyromegaly or masses palpated, and no cervical lymphadenopathy. Supple, full range of motion without nuchal rigidity, or vertebral point tenderness. No Meningismus. Chest/axilla: Normal chest wall appearance and motion. Nontender with no deformity. No lesions are appreciated. Cardiovascular: Regular rate and rhythm with a normal S1 and S2. No gallops, murmurs, or rubs. Normal PMI, no JVD. No pulse deficits. Respiratory: Lungs have equal breath sounds bilaterally, clear to auscultation and percussion. No rales, rhonchi or wheezes noted. No increased work of breathing, no retractions or nasal flaring. Abdomen/GI: Soft, non-tender, with normal bowel sounds. No distension or tympany. No guarding or rebound. No evidence of tenderness throughout. Back: No spinal tenderness. No costovertebral tenderness. Full range of motion. Skin: Warm, dry with normal turgor. Normal color with no rashes, no lesions, and no evidence of cellulitis. MS/ Extremity: Pulses equal, no cyanosis. Neurovascular intact. Full, normal range of motion. Neuro: Awake and alert, GCS 15, oriented to person, place, time, and situation. Cranial nerves II-XII grossly intact. Motor strength 5/5 in all extremities. Sensory grossly intact. Cerebellar exam normal. Normal gait. Psych: Awake, alert, with orientation to person, place and time. Behavior, mood, and affect are within normal limits. Vital Signs: 08:00 BP 165 / 96; Pulse 67; Resp 17 S; Pulse Ox 99% on R/A; jw7 14:29 BP 179 / 88; Pulse 73; Resp 17; Temp 97.3; Pulse Ox 98% on R/A; Pain 5/10; ll1 17:52 BP 172 / 85; Pulse 66; Resp 18; Pulse Ox 99% on R/A; ld1 18:48 BP 167 / 91; Pulse 64; Resp 18; Pulse Ox 99% on R/A; ld1 14:29 Pain Scale: Adult ll1 Procedures: 17:58 Performed EKG interpreted by me: Normal sinus rhythm rate 67, no evidence of acute ND. cp3 MDM: 14:13 Patient medically screened. cp3 17:58 Differential diagnosis: Anemia CHF exacerbation, pneumonia, pulmonary edema, Pulmonary cp3 Embolism. Data reviewed: vital signs, nurses notes. Consideration of Admission/Observation Escalation of care including admission/observation considered. 02/13 14:54 Order name: Basic Metabolic Panel; Complete Time: 19:10 3 02/13 14:54 Order name: CBC with Diff; Complete Time: 17:55 3 02/13 14:54 Order name: D-Dimer; Complete Time: 17:55 3 02/13 14:54 Order name: LFT's; Complete Time: 19:10 3 02/13 14:54 Order name: Magnesium; Complete Time: 19:10 3 02/13 14:54 Order name: NT PRO-BNP; Complete Time: 19:10 3 02/13 14:54 Order name: PT-INR; Complete Time: 17:55 3 02/13 14:54 Order name: Troponin HS; Complete Time: 19:10 3 02/13 14:54 Order name: XRAY Chest (1 view); Complete Time: 18:00 3 02/13 15:01 Order name: CT Head Brain wo Cont; Complete Time: 16:20 3 02/13 14:54 Order name: EKG; Complete Time: 14:58 3 02/13 14:54 Order name: Cardiac monitoring; Complete Time: 17:41 3 02/13 14:54 Order name: EKG - Nurse/Tech; Complete Time: 17:41 3 02/13 14:54 Order name: IV Saline Lock; Complete Time: 17:39 3 02/13 14:54 Order name: Labs collected and sent; Complete Time: 17:39 cp3 02/13 14:54 Order name: O2 Per Protocol; Complete Time: 17:25 cp3 02/13 14:54 Order name: O2 Sat Monitoring; Complete Time: 17:25 cp3 Administered Medications: 17:39 Drug: Aspirin PO Chewable Tablet 324 mg Route: PO; ld1 20:39 Follow up: Response: No adverse reaction jw7 19:57 CANCELLED (Physician Discretion): Decadron - Dexamethasone IVP 10 mg IVP once cp3 20:39 Drug: Furosemide PO 40 mg Route: PO; jw7 20:39 Follow up: Response: No adverse reaction jw7 Disposition Summary: 02/13/23 20:21 Discharge Ordered Location: Home cp3 Condition: Stable cp3 Diagnosis - Syncope Near cp3 - Shortness of breath cp3 Followup: cp3 - With: Byron Gannon MD - When: 48 Hours - Reason: Discharge Instructions: - Discharge Summary Sheet cp3 - Near-Syncope cp3 - Shortness of Breath, Adult cp3 Forms: - Medication Reconciliation Form cp3 - Thank You Letter cp3 - Antibiotic Education cp3 - Prescription Opioid Use cp3 - Patient Portal Instructions cp3 - Leadership Thank You Letter cp3 Prescriptions: - Lasix 20 mg Oral Tablet - take 1 tablet by ORAL route once daily; 3 tablet; Refills: 0, Product Selection cp3 Permitted Signatures: Dispatcher [employer] Moises Steinberg MD MD cp3 Casandra Christine RN RN ll1 Ailin Vargas RN RN ld1 Grecia Odom RN RN jw7 Corrections: (The following items were deleted from the chart) 19:57 19:56 Decadron - Dexamethasone IVP 10 mg IVP once ordered. cp3 cp3
[2023-02-13] MEDS ORDERED: FUROSEMIDE 40 MG TABLET ONE (20:41)
[2023-02-13 21:09] VITALS: TEMP 97.3
[2023-02-13 21:14] VITALS: O2SAT 99
[2023-02-13 21:15] VITALS: BP 167/91
--- NOTE | 2023-02-14 15:52 | EKG ---
Test Date: 2023-02-13 Test Time: 17:39:43 Visual Merchandising Coordinator: BP MEASUREMENT RESULTS: Intervals: Rate: 67 [place]: 128 QRSD: 66 QT: 400 QTc: 422 [place]: P: 47 [place]: 128 QRS: 17 T: 30 INTERPRETIVE STATEMENTS: Normal sinus rhythm Normal ECG Compared to ECG 09/06/2019 22:20:49 Sinus bradycardia no longer present Myocardial infarct finding no longer present Electronically Signed On 02-14-23 15:51:27 CDT by Kofi Gomez
== END 2023-02-13 20:44 | disposition home or self-care (01) ==
LOC: ER 14:05
DX: R55 Syncope and collapse (principal); R06.02 Shortness of breath; I10 Essential (primary) hypertension
CPT/HCPCS: 36415; 70450; 71045; 80048; 80076; 83735; 83880; 84484; 85025; 85379; 85610; 93005; 99284

== ENCOUNTER 2023-04-11 12:09 | Day surgery (SDC) | payer OTHER ==
[2023-04-10 10:39] LABS: Absolute Lymphocytes (CBC) 2.7 K/uL (0.7-4.9); Hematocrit 39.1 % (36.0-45.0); Lymphocytes % 34.6 % (15.3-44.8); MCV 89.6 fL (80-100); MPV 9.1 fL (7.6-11.3); Platelets 315 thou/uL (152-406); RBC Red Blood Cell Count 4.37 M/uL (3.86-4.86)
[2023-04-10 11:18] LABS: Potassium 4.2 mEq/L (3.5-5.1)
[2023-04-10 12:14] LABS: Protime INR 0.91
[2023-04-11] MEDS ORDERED: NA CHLORIDE 0.9% 500 ML ONE ×2 (12:23→14:04)
[2023-04-11] MEDS ORDERED: HEPARIN 10,000 UNIT/10 ML VIAL IV ONE (12:52)
[2023-04-11] MEDS ORDERED: FENTANYL CITR 100 MCG/2 ML ONE (12:52)
[2023-04-11] MEDS ORDERED: ASPIRIN 325 MG TAB ONE (12:52)
[2023-04-11] MEDS ORDERED: HEPARIN 5000 UNIT/ML 1 ML VIAL ONE (12:52)
[2023-04-11] MEDS ORDERED: CLOPIDOGREL 75 MG TABLET ONE (12:52)
[2023-04-11] MEDS ORDERED: HEPA 1000U/500MLS 2,000 UNIT/1,000 ML BAG IV ONE (12:52)
[2023-04-11] MEDS ORDERED: LIDOCAINE 1% 20 ML MDV ONE (12:52)
[2023-04-11] MEDS ORDERED: VERAPAMIL HCL 10 MG/4 ML VIAL IV ONE (12:53)
[2023-04-11] MEDS ORDERED: NITROGLYCERIN/D5W 50 MG/250 ML BTL IV ONE (12:53)
[2023-04-11] MEDS ORDERED: TICAGRELOR 90 MG TABLET PO ONE (12:53)
[2023-04-11] MEDS ORDERED: ATROPINE SULF 1 MG/10 ML SYR IV ONE (12:53)
[2023-04-11] MEDS ORDERED: MIDAZOLAM HCL 2 MG/2 ML INJ ONE ×2 (12:53→13:37)
[2023-04-11] MEDS ORDERED: HEPA 1000U/500MLS 1,000 UNIT/500 ML BAG IV ONE (13:30)
[2023-04-11 16:57] VITALS: O2SAT 97
[2023-04-11 18:10] VITALS: BP 132/73
== END 2023-04-11 18:18 | disposition home or self-care (01) ==
LOC: CCL 12:09
PROVIDERS: ATTEND Internal Medicine
DX: I25.119 Atherosclerotic heart disease of native coronary artery with unspecified angina pectoris (principal); I10 Essential (primary) hypertension; Z79.899 Other long term (current) drug therapy
CPT/HCPCS: 85025; 80048; 36415; 85610; 85730; 93458; 76937; C1893; Q9967; C1725; C9600; J1644; J2001; J2250 ×2; J3010; J7040 ×2; 85347; J0461

== ENCOUNTER 2023-10-16 16:25 | Observation (INO) | payer OTHER ==
--- OUTSIDE RECORDS SUMMARY | 2023-10-16 16:28 | XMS REPORT | Continuity of Care Document ---
Author Name Unknown Address [address] [facility] [address] [place] [address] [facility] Address [address] [facility] [address] [place] [address] Care Team Providers Care Fisher Trap Name Role Phone SANDRITA GANNON Primary Care Physician Unavailab Sandrita Magallanes Attending Clinician Unavailable ALETHA WADE Attending Clinician Unavailable Aletha Morin Attending Clinician [phone] ALETHA WADE Admitting Clinician Unavailable Payers Payer Name Policy Type Policy Number Effective Date Expirati on Date Source MEDICARE PART A \T\ [id number] 2016 00:00:00 Problems Condition Name Condition Details Condition Category Status Onset Date Resolution Date Last Treatment Date Treating Clinician Comments Source No known active problems No known active problems Disease [facility] Allergies, Adverse Reactions, Alerts Allergy Name Allergy Type Status Severity Reaction(s) Onset Date Inactive Date Treating Clinician Comments Source NO KNOWN ALLERGIE S Drug Class Active [facility] Social History Social Habit Start Date Stop Date Quantity Comments Source Exposure to SARS-CoV-2 (event) 2021-10-10 00:00:00 2021-10-20 22:57:00 Unable to assess [facility] Sex Ass[birth year] At 1950 00:00:00 1950 00:00:00 [facility] Smoking Status Start Date Stop Date Source Unknown if ever smoked [facility] Medications Ordered Medication Name Filled Medication Name Start Date Stop Date Current Medication? Ordering Clinician Indication Dosage Frequency Signature (SIG) Comments Components Source diazePAM (VALIUM) tablet 5 mg 10-21 06:45: 00 10-21 05:37 :00 No 5mg 5 mg, Oral, ONCE, 1 dose, On [place] 10/21/21 at 0145, ANN MARIE [facility] HYDROcodone -acetaminop hen (NORCO 5) 5-325 mg tablet 1 tablet 10-21 05:30: 00 10-21 04:30 :00 No 1{tbl} 1 tablet, Oral, ONCE, 1 dose, On [facility] 10/21/21 at 0030, ANN MARIE [facility] diazePAM 5 mg tablet 10-21 00:00: 00 Yes [id number] May take 1 tablet three times a day as needed for spasm, do not take within 2 hours of tylenol with codeine [facility] acetaminoph en-codeine 300-30 mg tablet 10-21 00:00: 00 10-29 04:59 :00 No [id number] 1{tbl} Take 1 tablet by mouth every 6 (six) hours as needed for Pain (scale 7-10) for up to 7 days. Indication s: acute pain [facility] Vital Signs Vital Name Observation Time Observation Value Comments S ource Systolic blood pressure 2021-10-21 07:47:00 130 mm[Hg] [facility] Diastolic blood pressure 2021-10-21 07:47:00 71 mm[Hg] [facility] Heart rate 2021-10-21 07:47:00 79 /min [facility] Respiratory rate 2021-10-21 07:47:00 18 /min [facility] Oxygen saturation in Arterial blood by Pulse oximetry 2021-10-21 07:47:00 91 /min [facility] Body temperature 2021-10-21 04:02:00 35.89 [place] [facility] Body height 2021-10-21 04:02:00 165.1 cm [facility] Body weight 2021-10-21 04:02:00 68.04 kg [facility] BMI 2021-10-21 04:02:00 24.96 kg/m2 [facility] Procedures Procedure Date / Time Performed Performing Clinicia n Source XR PELVIS <3 VW 2021-10-21 06:30:00 [facility] CONTRAST 2021-10-21 06:14:15 Aletha Wade [facility] XR KNEE <3 VW LEFT 2021-10-21 04:49:00 Aletha Wade [facility] Encounters Start Date/Time End Date/Time Encounter Type Admission Type Attending [facility] Care Facility Care Department Encounter ID Source 2021-12-20 08:59:02 Outpatient [facility] [id number] [facility] 2021-10-20 23:07:00 2021-10-21 02:50:00 Emergency X ALETHA WADE [facility] ERT [id number] [facility] 2021-10-20 23:07:00 2021-10-21 02:50:00 Emergency Aletha Wade [facility] [id number] [facility]
[2023-10-16 17:05] LABS: Absolute Basophils 0.1 K/uL (0-0.5); Absolute Eosinophils 0.1 K/uL (0-0.5); Absolute Lymphocytes (CBC) 3.8 K/uL (0.7-4.9); Absolute Monocytes 0.7 K/uL (0.1-1.3); Absolute Neutrophil 3.8 K/uL (1.8-8.0); Basophils % 0.6 % (0-1.3); Eosinophils % 1.6 % (0-4.4); Hematocrit 41.6 % (36.0-45.0); Hemoglobin 13.9 g/dL (12.0-15.0); Lymphocytes % 44.9 % (15.3-44.8); MCH 30.4 pg (27.0-35.0); MCHC 33.4 g/dL (32.0-36.0); MPV 8.7 fL (7.6-11.3); Monocytes % 7.9 % (3.3-12.3); Nucleated Red Blood Cells % 0.1 % (0-0); Platelets 330 thou/uL (152-406); RBC Red Blood Cell Count 4.57 M/uL (3.86-4.86)
[2023-10-16 17:24] LABS: Anion Gap 9.1 mEq/L (5.0-15.0); Potassium 4.1 mEq/L (3.5-5.1); Troponin High Sensitivity 4.1 pg/mL (<58.9)
--- NOTE | 2023-10-16 17:54 | RAD REPORT ---
EXAM DESCRIPTION: RAD - Chest Single View - 10/16/2023 5:48 pm CLINICAL HISTORY: DYSPNEA Chest pain. COMPARISON: Chest Single View dated 02/13/2023; Chest Single View dated 08/26/2019; Chest Pa And Lat (2 Views) dated 03/12/2018; CHEST SINGLE VIEW dated 07/22/2015 FINDINGS: Portable technique limits examination quality. The lungs are grossly clear. The heart is normal in size. No displaced fractures. IMPRESSION: No acute intrathoracic process suspected.
--- NOTE | 2023-10-16 17:57 | ER ---
Nurse's Notes [facility] Name: Diane Carrasco Age: 73 yrs Sex: Female : 1950 Arrival Date: 10/16/2023 Time: 16:25 Bed 15 Private MD: Diagnosis: Chest pain, unspecified;Dyspnea, unspecified Presentation: 10/15 16:29 Chief complaint: Patient states: hurts more in the back, hard to take a deep breath, ko1 not so much chest pain. Does have a hx of a stent about [address] Grzegorz ozuna. Its been going on for a couple of days. Coronavirus screen: At this time, the client does not indicate any symptoms associated with coronavirus-19. Ebola Screen: No symptoms or risks identified at this time. Initial Sepsis Screen: Does the patient meet any 2 criteria? No. Patient's initial sepsis screen is negative. Does the patient have a suspected source of infection? No. Patient's initial sepsis screen is negative. Risk Assessment: Do you want to hurt yourself or someone else? Patient reports no desire to harm self or others. Onset of symptoms is unknown. 16:29 Method Of Arrival: Ambulatory ko1 16:29 Acuity: THAO 3 ko1 16:41 Chief complaint:. ko1 Triage Assessment: 16:35 General: Appears in no apparent distress. Behavior is calm, cooperative, appropriate ko1 for age. Pain: Complains of pain in back, chest. Cardiovascular: Reports chest pain, shortness of breath. Historical: - Allergies: 16:35 No Known Allergies; ko1 - Home Meds: 19:39 duloxetine 30 mg Oral cpDR once daily [Active]; gabapentin 100 mg Oral cap 3 times per bm8 day [Active]; metoprolol tartrate 50 mg Oral tab 1 tab 2 times per day [Active]; metoprolol tartrate 25 mg Oral tab 1 tab 2 times per day [Active]; omeprazole 40 mg Oral cpDR 2 times per day [Active]; Omeprazole Oral [Active]; - PMHx: 16:35 Arthritis; GERD; Hypertension; cardiac stent x 1 (Hypertension); ko1 - PSHx: 16:35 None; ko1 - Immunization history:: Adult Immunizations unknown. - Infectious Disease History:: Denies. - Social history:: Smoking status: Patient denies any tobacco usage or history of. - Family history:: not pertinent. - Hospitalizations: : No recent hospitalization is reported. - History obtained from: friend. Screenin:40 [facility] ED Fall Risk Assessment (Adult) History of falling in the last 3 months, rs5 including since admission No falls in past 3 months (0 pts) Confusion or Disorientation No (0 pts) Intoxicated or Sedated No (0 pts) Impaired Gait No (0 pts) Mobility Assist Device Used No (0 pt) Altered Elimination No (0 pt) Score/Fall Risk Level 0 - 2 = Low Risk Oriented to surroundings, Maintained a safe environment. Abuse screen: Denies threats or abuse. Nutritional screening: No deficits noted. Tuberculosis screening: No symptoms or risk factors identified. Assessment: 16:40 General: Appears in no apparent distress. uncomfortable, Behavior is calm, cooperative. rs5 Pain: Complains of pain in chest Pain does not radiate. Pain currently is 2 out of 10 on a pain scale. Quality of pain is described as aching, Pain began Is continuous. Neuro: Level of Consciousness is awake, alert, obeys commands, Oriented to person, place, time, situation. Cardiovascular: Patient's skin is warm and dry. Rhythm is regular. Respiratory: Reports shortness of breath Airway is patent Respiratory effort is even, unlabored, Respiratory pattern is regular, symmetrical. GI: Abdomen is round non-distended, Abd is soft and non tender X 4 quads. : No signs and/or symptoms were reported regarding the genitourinary system. EENT: No signs and/or symptoms were reported regarding the EENT system. 17:55 Reassessment: Patient and/or family updated on plan of care and expected duration. Pain rs5 level reassessed. Patient is alert, oriented x 3, equal unlabored respirations, skin warm/dry/pink. Patient denies pain at this time. Patient states feeling better. Patient states symptoms have improved. 18:51 Reassessment: No changes from previously documented assessment. rs5 19:36 Reassessment: Patient appears in no apparent distress at this time. Patient and/or bm8 family updated on plan of care and expected duration. Pain level reassessed. Patient is alert, oriented x 3, equal unlabored respirations, skin warm/dry/pink. Patient denies pain at this time. General: Appears in no apparent distress. comfortable, Behavior is calm, cooperative. Pain: Denies pain. Neuro: No deficits noted. Level of Consciousness is awake, alert, obeys commands, Oriented to person, place, time, situation. Cardiovascular: Denies Capillary refill < 3 seconds Patient's skin is warm and dry. Rhythm is regular. Respiratory: No deficits noted. Airway is patent Respiratory effort is even, unlabored, Respiratory pattern is regular, symmetrical, Breath sounds are clear bilaterally. GI: No deficits noted. No signs and/or symptoms were reported involving the gastrointestinal system. : No deficits noted. No signs and/or symptoms were reported regarding the genitourinary system. EENT: No deficits noted. No signs and/or symptoms were reported regarding the EENT system. Derm: No deficits noted. No signs and/or symptoms reported regarding the dermatologic system. Musculoskeletal: No deficits noted. No signs and/or symptoms reported regarding the musculoskeletal system. 20:06 Reassessment: report faxed at 2006 to ALONDRA Garduno. jb4 Vital Signs: 16:29 BP 173 / 73; Pulse 72; Resp 16; Temp 98.2; Pulse Ox 99% ; ko1 17:05 BP 133 / 77; Pulse 76; Resp 18; Pulse Ox 99% on R/A; rs5 18:51 BP 130 / 81; Pulse 70; Resp 18; Pulse Ox 99% on R/A; rs5 19:36 BP 144 / 81; Pulse 74; Resp 12; Temp 98.2; Pulse Ox 98% ; Pain 0/10; bm8 19:36 Pain Scale: Adult bm8 ED Course: 16:28 Patient arrived in ED. im 16:35 Humberto Barone MD is Attending Physician. rn 16:35 Triage completed. ko1 16:35 Arm band placed on right wrist. Patient placed in an exam room, on a stretcher, on ko1 alarm security or surveillance monitor, on pulse oximetry, Patient notified of wait time. 16:40 Patient has correct armband on for positive identification. Placed in gown. Bed in low rs5 position. Call light in reach. Side rails up X2. Client placed on continuous cardiac and pulse oximetry monitoring. NIBP monitoring applied. 16:40 No provider procedures requiring assistance completed. rs5 16:48 Denzel Benedict RN is Primary Nurse. rs5 17:06 Inserted saline lock: 22 gauge in left antecubital area, using aseptic technique. Blood rs5 collected. 17:47 EKG done, by mortuary technician. jr12 17:50 XRAY Chest (1 view) In Process Unspecified. EDMS 17:56 Ruben Sharif MD is Hospitalizing Provider. rn 19:36 Awaiting bed assignment. bm8 19:36 Provided Education on: need for admission. bm8 19:36 O2 via pt on ra. bm8 20:16 Primary Nurse role handed off by Denzel Benedict, ALONDRA bm8 20:54 Jose Maria Sahu, RN is Primary Nurse. bm8 20:54 Patient admitted, IV remains in place. bm8 Administered Medications: 18:23 Drug: GI Cocktail without - (Maalox PO 30 ml, Lidocaine Mucous Membrane 2 % 15 rs5 ml) PO once Route: PO; 19:39 Follow up: Response: No adverse reaction bm8 18:23 Drug: Aspirin PO Chewable Tablet 324 mg PO once; 81 mg tablets x 4 Route: PO; rs5 19:39 Follow up: Response: No adverse reaction bm8 18:24 Drug: Pantoprazole IVP 40 mg IVP once Route: IVP; Site: left antecubital; rs5 19:39 Follow up: Response: No adverse reaction bm8 Medication: 17:07 VIS not applicable for this client. rs5 Outcome: 17:57 Decision to Hospitalize by Provider. rn 20:54 Admitted to Med/surg accompanied by nurse, via wheelchair, room 211, with chart, bm8 20:54 Condition: stable 20:54 Instructed on the need for admit, 20:55 Patient left the ED. bm8 Signatures: Dispatcher [employer] EDMS Humberto Barone MD MD rn Bryson, James RN RN jb4 Jaci Donato RN RN ko1 Denzel Benedict, RN RN rs5 Kerrie Henry Jess jr12 Jose Maria Sahu, RN RN bm8 Corrections: (The following items were deleted from the chart) 16:42 16:29 Chief complaint: Patient states: hurts more in the back, hard to take a deep ko1 breath, not so much chest pain. Does have a hx of a stent about [address] Grzegorz ozuna. Its been going on for a couple of days ko1
--- NOTE | 2023-10-16 17:57 | EDPHYS ---
Physician Documentation [facility] Name: Diane Carrasco Age: 73 yrs Sex: Female : 1950 Arrival Date: 10/16/2023 Time: 16:25 Bed 15 Private MD: ED Physician Humberto Barone HPI: 10/15 16:56 This 73 yrs old Female presents to ER via Ambulatory with complaints of Chest Pain, rn Shortness Of Breath. 16:56 The patient or guardian reports chest pain that is located primarily in the Posterior. rn Onset: 2 day(s) ago. The pain does not radiate. Associated signs and symptoms: Pertinent positives: shortness of breath, Pertinent negatives: abdominal pain, cough, diaphoresis, palpitations, syncope, vomiting. The chest pain is described as a pressure. Duration: The patient or guardian reports multiple episodes, that are intermittent. Modifying factors: The symptoms are alleviated by nothing. the symptoms are aggravated by exertion. Severity of pain: At its worst the pain was moderate in the emergency department the pain has improved. The patient has experienced similar episodes in the past. Patient reports 2 days of intermittent chest heaviness and shortness of breath, worse with exertion. Similar symptoms 6 months ago when required cardiac stent. Patient states that she is worried that she is having another heart problem. Denies recent illness. No fever. No trauma. No cough.. Historical: - Allergies: 16:35 No Known Allergies; ko1 - Home Meds: 19:39 duloxetine 30 mg Oral cpDR once daily [Active]; gabapentin 100 mg Oral cap 3 times per bm8 day [Active]; metoprolol tartrate 50 mg Oral tab 1 tab 2 times per day [Active]; metoprolol tartrate 25 mg Oral tab 1 tab 2 times per day [Active]; omeprazole 40 mg Oral cpDR 2 times per day [Active]; Omeprazole Oral [Active]; - PMHx: 16:35 Arthritis; GERD; Hypertension; cardiac stent x 1 (Hypertension); ko1 - PSHx: 16:35 None; ko1 - Immunization history:: Adult Immunizations unknown. - Infectious Disease History:: Denies. - Social history:: Smoking status: Patient denies any tobacco usage or history of. - Family history:: not pertinent. - Hospitalizations: : No recent hospitalization is reported. - History obtained from: friend. ROS: 16:59 Constitutional: Negative for fever, chills, and weight loss, Neck: Negative for injury, rn pain, and swelling, Cardiovascular: Positive for chest pain Respiratory: Positive for shortness of breath Abdomen/GI: Negative for abdominal pain, nausea, vomiting, diarrhea, and constipation, MS/Extremity: Negative for injury and deformity, Skin: Negative for injury, rash, and discoloration, Neuro: Negative for headache, weakness, numbness, tingling, and seizure, Exam: 16:59 Constitutional: This is a well developed, well nourished patient who is awake, alert, rn appears anxious Cardiovascular: Regular rate and rhythm. No pulse deficits. Respiratory: No increased work of breathing, no retractions or nasal flaring. Abdomen/GI: Soft, non-tender Skin: Warm, dry MS/ Extremity: Pulses equal, no cyanosis. Neurovascular intact. Full, normal range of motion. Equal circumference. Neuro: Awake and alert, GCS 15 17:59 ECG was reviewed by the Attending Physician. rn Vital Signs: 16:29 BP 173 / 73; Pulse 72; Resp 16; Temp 98.2; Pulse Ox 99% ; ko1 17:05 BP 133 / 77; Pulse 76; Resp 18; Pulse Ox 99% on R/A; rs5 18:51 BP 130 / 81; Pulse 70; Resp 18; Pulse Ox 99% on R/A; rs5 19:36 BP 144 / 81; Pulse 74; Resp 12; Temp 98.2; Pulse Ox 98% ; Pain 0/10; bm8 19:36 Pain Scale: Adult bm8 MDM: 16:35 Patient medically screened. rn 17:56 Differential diagnosis: acute myocardial infarction, acute pericarditis, anxiety, rn esophagitis, gastritis, gastroesophageal reflux disease (GERD), pericarditis, pneumothorax, stable angina, unstable angina. HEART Score: History: Moderately Suspicious (1), ECG: Normal (0), Age: > or = 65 years (2), Risk Factors: > or = 3 Risk factors for atherosclerotic disease (2), Troponin: < or = 1 x Normal Limit (0), Total Score = 5. The patient was given aspirin in the Emergency Department. Data reviewed: vital signs, nurses notes, lab test result(s), EKG, radiologic studies, plain films. Consideration of Admission/Observation Patient was admitted/placed on observation. Escalation of care including admission/observation considered. Counseling: I had a detailed discussion with the patient and/or guardian regarding the historical points, exam findings, and any diagnostic results supporting the discharge/admit diagnosis, lab results, radiology results, the need for further work-up and treatment in the hospital. 10/15 16:44 Order name: Basic Metabolic Panel; Complete Time: 17:32 rn 10/15 16:44 Order name: CBC with Diff; Complete Time: 17:32 rn 10/15 16:44 Order name: NT PRO-BNP; Complete Time: 17:32 rn 10/15 16:44 Order name: Troponin HS; Complete Time: 17:32 rn 10/15 19:31 Order name: CBC with Automated Diff EDUT 10/15 19:31 Order name: CBC with Automated Diff EDMS 10/15 19:31 Order name: Comprehensive Metabolic Panel EDUT 10/15 19:31 Order name: Comprehensive Metabolic Panel EDUT 10/15 20:39 Order name: Thyroid Stimulating Hormone EDUT 10/15 16:44 Order name: XRAY Chest (1 view); Complete Time: 17:56 rn 10/15 19:32 Order name: CT CHEST,ABD,PELVIS W/O EDUT 10/15 20:28 Order name: CT EDUT 10/15 16:44 Order name: Cardiac monitoring; Complete Time: 17:06 rn 10/15 16:44 Order name: EKG - Nurse/Tech; Complete Time: 17:47 rn 10/15 16:44 Order name: IV Saline Lock; Complete Time: 17:07 rn 10/15 16:44 Order name: Labs collected and sent; Complete Time: 17:07 rn 10/15 16:44 Order name: O2 Per Protocol; Complete Time: 17:07 rn 10/15 16:44 Order name: O2 Sat Monitoring; Complete Time: 17:07 rn EC:59 Rate is 65 beats/min. Rhythm is regular. QRS Harold is Normal. SD interval is normal. QRS rn interval is normal. QT interval is normal. No Q waves. T waves are Normal. No ST changes noted. Clinical impression: Normal ECG. Interpreted by me. Reviewed by me. Administered Medications: 18:23 Drug: GI Cocktail without - (Maalox PO 30 ml, Lidocaine Mucous Membrane 2 % 15 rs5 ml) PO once Route: PO; 19:39 Follow up: Response: No adverse reaction bm8 18:23 Drug: Aspirin PO Chewable Tablet 324 mg PO once; 81 mg tablets x 4 Route: PO; rs5 19:39 Follow up: Response: No adverse reaction bm8 18:24 Drug: Pantoprazole IVP 40 mg IVP once Route: IVP; Site: left antecubital; rs5 19:39 Follow up: Response: No adverse reaction bm8 Disposition Summary: 10/16/23 17:57 Hospitalization Ordered Notes: Hospitalization Status: Observation rn Provider: Ruben Sharif rn Location: Telemetry/MedSurg (observation) rn Condition: Stable rn Problem: new rn Symptoms: have improved rn Bed/Room Type: Standard rn Room Assignment: 211(10/16/23 19:49) jb4 Diagnosis - Chest pain, unspecified rn - Dyspnea, unspecified rn Forms: - Medication Reconciliation Form rn - SBAR form rn - Leadership Thank You Letter rn Signatures: Dispatcher [employer] EDMS Humberto Barone MD MD rn Bryson, James RN RN jb4 Jaci Donato RN RN ko1 Denzel Benedict, RN RN rs5 Keyshawn Thorpe ty Jose Maria Sahu RN RN bm8 Corrections: (The following items were deleted from the chart) 16:44 16:44 BASIC METABOLIC PANEL+C.LAB.BRZ ordered. EDMS EDMS 16:44 16:44 CBC+H.LAB.BRZ ordered. EDMS EDMS 16:44 16:44 PROBNP+C.LAB.BRZ ordered. EDMS EDMS 16:44 16:44 Troponin High Sensitivity+C.LAB.BRZ ordered. EDMS EDMS 16:44 16:44 Chest Single View+RAD.RAD.BRZ ordered. EDMS EDMS 19:49 17:57 rn ty 19:49 19:49 211 ty jb4
[2023-10-16] MEDS ORDERED: ASPIRIN 81 MG CHEWABLE TABLET ONE (18:28)
[2023-10-16] MEDS ORDERED: MAGNES/ALUMIN/SIMET 30ML UCUP ONE (18:28)
[2023-10-16] MEDS ORDERED: PANTOPRAZOLE 40 MG INJ ONE (18:28)
[2023-10-16] MEDS ORDERED: ONDANSETRON 4 MG/2 ML VIAL IV PRN (19:26)
[2023-10-16] MEDS ORDERED: ALBUTEROL 2.5 MG/3 ML NEB SOL NEB PRN (19:26)
[2023-10-16] MEDS ORDERED: MORPHINE 2 MG/ML SYR IV PRN (19:26)
--- NOTE | 2023-10-16 19:26 | P.HP ---
Certification for Inpatient Patient admitted to: Observation With expected LOS: <2 Midnights Patient will require the following post-hospital care: None Practitioner: I am a practitioner with admitting privileges, knowledge of patient current condition, hospital course, and medical plan of care. Services: Services provided to patient in accordance with Admission requirements found in Title 42 Section 412.3 of the Code of Federal Regulations Patient History Date of Service: 10/16/23 Reason for admission: Shortness of breath on exertion History of Present Illness: 73-year-old female past medical history of HTN/GERD/CAD status post PCI 6 months ago with 1 stent placement, follows with Dr. Gomez, presented because of worsening shortness of breath on exertion. She states she was ambulating with her friend today and noticed she was getting more difficulty ambulating with shortness of breath. She denies any chest pain. She says she felt some aching pain in the back around the mid thoracic vertebrae. Pain is now radiating to the anterior chest wall. She admits to history of osteopenia and generalized bone pains. She states she also have some heartburn symptoms. She denies any palpitation. She said her pain treating her unstable angina 6 months ago was chest wall pain notes this back pain. On arrival in the ED vital signs were stable, chest x-ray shows clear lungs. EKG showed normal sinus rhythm at 87 bpm. Initial troponin was 4.1. proBNP of 131. She states she has quit smoking 2 years ago. She has been admitted for further observation. She denies any history of body swelling. Allergies No Known Allergies Allergy (Verified 04/10/23 10:04) Home Medications: Omeprazole [Prilosec] 40 mg PO DAILY 08/26/19 Tramadol HCl [Ultram] 50 mg PO DAILY PRN 08/26/19 Meclizine HCl [Antivert] 12.5 mg PO TID PRN #90 tab 08/28/19 Metoprolol Tartrate [Lopressor] 25 mg PO BID #60 tab 08/28/19 Temazepam [Restoril] 30 mg PO BEDTIME PRN #30 capsule 08/28/19 - Past Medical/Surgical History Has patient received pneumonia vaccine in the past: No Diabetic: No -: Hypertension -: Osteopenia -: GERD -: CAD status post PCI x 1 6 months Past Surgical History: Patient denies surgical history - Family History Family History: Reviewed- Non-Contributory - Social History Smoking Status: Former smoker (Quit 2 years ago) Alcohol use: No CD- Drugs: No Caffeine use: Yes Place of Residence: Home Review of Systems Respiratory: SOB with Excertion Cardiovascular: Unremarkable Gastrointestinal: Nausea, Unremarkable Musculoskeletal: Back Pain Physical Examination - Physical Exam General: Alert HEENT: Atraumatic, Normocephalic, PERRLA Neck: Supple, 2+ carotid pulse no bruit, JVD not distended Respiratory: Clear to auscultation bilaterally, Normal air movement, Other (Tenderness over bilateral chest wall on palpitation) Cardiovascular: No edema, Regular rate/rhythm, Normal S1 S2 Gastrointestinal: Normal bowel sounds, Soft and benign, Non-distended Musculoskeletal: No clubbing, No swelling, Tenderness (Over mid thoracic area, as well as all bony surfaces) Neurological: Normal gait, Normal speech, Normal strength at 5/5 x4 extr, Normal tone External genitalia: No edema Rectal: Normal, Average - Studies Laboratory Data (last 24 hrs) 10/16/23 10/16/23 16:57 16:57 WBC 8.40 Hgb 13.9 Hct 41.6 Plt Count 330 Sodium 139 Potassium 4.1 BUN 14 Creatinine 0.92 Glucose 119 H Assessment and Plan - Problems (Diagnosis) (1) SOB (shortness of breath) on exertion Current Visit: Yes Status: Acute (2) CAD (coronary artery disease) Current Visit: Yes Status: Acute (3) GERD (gastroesophageal reflux disease) Current Visit: Yes Status: Acute - Plan Impression Exertional shortness of breath Mid back pain Hypertension History of CAD History of GERD History of osteopenia Plan Given pattern of atypical acute dyspnea on exertion, will obtain CT of the chest to further evaluate the lungs as well as the rib margins Given history of osteopenia, possibility of compression fracture causing pleuritic shortness of breath considered 2 0 set of cardiac enzymes Plain nitroglycerin patch Add Pepcid 40 mg twice daily to regimen for presumed superimposed GERD Subcutaneous Lovenox for DVT prophylaxis Consult cardiology Dr. Gomez In a.m. if still persisted DVT prophylaxis subcutaneous Lovenox Possible discharge in 24 to 48 hours Discharge Plan: Home - Advance Directives Does patient have a Living Will: No Does patient have a Durable POA for Healthcare: No - Code Status/Comfort Care Code Status Assessed: Yes Code Status: Full Code Physician Review: Patient Assessed, Agree with Above Assessment and Plan
[2023-10-16] MEDS ORDERED: HYDRALAZINE HCL 20 MG/ML VIAL IV PRN (19:44)
[2023-10-16] MEDS ORDERED: LORAZEPAM 0.5 MG TABLET PO PRN (19:44)
--- NOTE | 2023-10-16 20:27 | RAD REPORT ---
EXAM DESCRIPTION: CT - Chest Abd Pelvis Wo Con - 10/16/2023 8:19 pm CLINICAL HISTORY: Chest and abdomen pain. back pain COMPARISON: Thorax Wo Con dated 02/28/2023; Rest Stress Cardiac Imaging dated 04/03/2023; Thoracic Spin e Wo Contr dated 03/29/2022 TECHNIQUE: A limited noncontrast study was performed. All CT scans are performed using dose optimization technique as appropriate and may include automated exposure control or mA/KV adjustment according to patient size. FINDINGS: The lungs are clear.Small hiatal hernia.No pleural or pericardial effusion.No intrathoraci c adenopathy. The liver, spleen, pancreas, adrenal glands and kidneys are within normal limits. No bowel obstruction, free air, free fluid or abscess. Nonvisualized appendix. Mild sigmoid diverticu losis coli without diverticulitis. No pathologic lymphadenopathy in the abdomen or pelvis. Mild anterior wedge compression deformities are present at several vertebral levels. Age is indetermi yuki. IMPRESSION: Several age indeterminate anterior wedge compression deformities are present in the thor acic and lumbar spine.These are mild fractures and no canal compromise suspected. Followup non-emerge nt thoracic and lumbar spine MRI could be performed if further characterization as clinically needed.
[2023-10-16] MEDS: FAMOTIDINE 20 MG TAB PO SCH (21:26)
[2023-10-16 21:27] VITALS: O2SAT 98
[2023-10-16] MEDS: ACETAMINOPHEN 500 MG TAB PO PRN (21:28)
[2023-10-16] MEDS: GABAPENTIN 300 MG CAP PO SCH (22:34)
[2023-10-16] MEDS: METOPROLOL TAR 50 MG TAB PO SCH (22:34)
[2023-10-16] MEDS: ROSUVASTATIN 10 MG TAB PO SCH (22:34)
[2023-10-16] MEDS: MELATONIN 5 MG TABLET PO PRN (22:34)
[2023-10-17 00:35] VITALS: BMI 26.9
[2023-10-17 03:48] LABS: Absolute Basophils 0.1 K/uL (0-0.5); Absolute Eosinophils 0.1 K/uL (0-0.5); Absolute Lymphocytes (CBC) 3.7 K/uL (0.7-4.9); Absolute Monocytes 0.6 K/uL (0.1-1.3); Absolute Neutrophil 3.3 K/uL (1.8-8.0); Basophils % 0.7 % (0-1.3); Eosinophils % 1.7 % (0-4.4); Hematocrit 39.3 % (36.0-45.0); Hemoglobin 12.6 g/dL (12.0-15.0); Lymphocytes % 47.8 % (15.3-44.8); MCH 29.6 pg (27.0-35.0); MCHC 32.2 g/dL (32.0-36.0); MCV 91.9 fL (80-100); MPV 9.7 fL (7.6-11.3); Monocytes % 7.3 % (3.3-12.3); Neutrophils % 42.5 % (41.7-73.7); Nucleated Red Blood Cells % 0.1 % (0-0); Platelets 288 thou/uL (152-406); RBC Red Blood Cell Count 4.27 M/uL (3.86-4.86); Red Cell Distribution Width 14.2 % (12.1-15.2)
[2023-10-17 03:58] LABS: Albumin 3.4 g/dL (3.4-5.0); Albumin/Globulin Ratio 1.1 (1.1-1.8); Anion Gap 5.1 mEq/L (5.0-15.0); Bilirubin Total 0.3 mg/dL (0.2-1.0); Globulin 3.1 g/dL (2.3-3.5); Protein, Total 6.5 g/dL (6.4-8.2)
[2023-10-17 04:00] LABS: Potassium 4.1 mEq/L (3.5-5.1)
[2023-10-17] MEDS: PNEUMOCOCCAL VACCINE 0.5 ML IMVAC ONE (08:00)
[2023-10-17] MEDS: ENOXAPARIN 40 MG/0.4 ML SQ SCH (08:24)
[2023-10-17] MEDS: ASPIRIN EC 81 MG TAB PO SCH (08:25)
[2023-10-17] MEDS: NITROGLYCERIN 0.2 MG/HR (5 MG) PATCH TD SCH (08:30)
--- NOTE | 2023-10-17 09:13 | P.PN ---
Date of Service: 10/17/23 Subjective: reports worsening dyspnea on light exertion last few weeks +harder to catch her breath after ambulating short distances Reports ~1 month ago could walk much further prior to feeling SOB feels acid reflux/heartburn symptoms have been worse this past week afebrile ROS: 10 point ROS as noted above, otherwise negative Physical Exam: GEN: Alert, oriented, NAD HEENT: Normal conjunctiva, sclera anicteric CV: Regular rate and rhythm, no edema Pulm: Nonlabored respirations on room air, clear bilaterally ABD: Soft, nontender, nondistended Neuro: Normal speech, normal affect vitals reviewed Problem List: Dyspnea with light exertion GERD chronic back pain Osteopenia hx CAD s/p PCI x1 (left circumflex ~6 months ago) Hypertension Dyspnea with light exertion CT chest/abd (10/15): negative for any acute cardiopulmonary findings. Noted small hiatal hernia, mild sigmoid diverticulosis, several wedge compression deformities in thoracic/lumbar spine CXR (10/15): negative for any acute intrathoracic process CTA chest ordered to further eval and r/o PE troponins negative x3, monitor on telemetry Breathing okay on room air at rest denies new prescriptions last 1-2 months afebrile, no leukocytosis Cardiology consulted continue nebs GERD feels acid reflux/heartburn symptoms have been worse this past week Takes omeprazole at home continue pepcid chronic back pain Osteopenia CT chest/abdomen (10/15): Several age indeterminate anterior wedge compression deformities are present in the thoracic and lumbar spine.These are mild fractures and no canal compromise suspected. PRN analgesics hx CAD s/p PCI x1 (left circumflex ~6 months ago) Op report from [facility] (04/11/23) noted 90% stenosis left circumflex s/p PCI x1, 40- 50% mid LAD stenosis, ~60% stenosis prox-mid RCA takes plavix / baby aspirin Hypertension confirm home meds, restart as appropriate VTE: Lovenox Code: Full Dispo: Home, ~1-2 days
--- NOTE | 2023-10-17 11:08 | RAD REPORT ---
EXAM DESCRIPTION: CT - Chest For Pe Angio - 10/17/2023 10:42 am CLINICAL HISTORY: dyspnea on exertion, r/o PE COMPARISON: Chest Abd Pelvis Wo Con dated 10/16/2023; Thorax Wo Con dated 02/28/2023 TECHNIQUE: Thin axial CT images of the chest were obtained following administration of 100 mL Isovue 370 IV contrast. Multiplanar reconstructions, and maximum intensity projection reconstructions were generated and reviewed. Exam utilizes a protocol for optimal evaluation of pulmonary arterial tree. All CT scans are performed using dose optimization technique as appropriate and may include automated exposure control or mA/KV adjustment according to patient size. FINDINGS: Pulmonary arteries are normal. No emboli or other suspicious finding. No acute or signific ant aorta findings. No mass or infiltrate in the lung parenchyma. Mosaic attenuation throughout the lungs, which may refl ect decreased inspiratory effort. No pleural thickening or pleural effusion. No pneumothorax. No abnormal mediastinal or hilar masses or lymphadenopathy seen. No chest wall mass or abnormal axill iary lymphadenopathy. Multiple mild compression deformities along the lower Thoracic spine with endplate remodeling, stable in appearance. IMPRESSION: No evidence of acute central pulmonary emboli. Negative CT scan of the chest for other significant findings.
[2023-10-17 11:49] VITALS: BP 103/54; TEMP 97.1
--- NOTE | 2023-10-17 13:12 | P.CNS ---
Date of Consult: 10/17/23 Chief Complaint: Shortness of breath on exertion History of Present Illness: Patient with PMH of CAD s/p PCI LCX 03/2023, presented with worsening SOB and fatigue with some atypical chest pain on exertion that has been going on for few months, denies any other symptoms. Allergies No Known Allergies Allergy (Verified 10/16/23 21:50) Home Medications: Omeprazole [Prilosec] 40 mg PO BID 08/26/19 Amlodipine [Norvasc*] 5 mg PO SEECOM 10/16/23 Aspirin [Aspirin EC] 81 mg PO DAILY 10/16/23 Clopidogrel Bisulfate [Plavix] 75 mg PO DAILY 10/16/23 Gabapentin 300 mg PO BEDTIME 10/16/23 Metoprolol Tartrate [Lopressor*] 50 mg PO BID 10/16/23 Rosuvastatin [Crestor*] 10 mg PO BEDTIME 10/16/23 - Past Medical/Surgical History Diabetic: No -: Hypertension -: Osteopenia -: GERD -: CAD status post PCI x 1 6 months -: hysterectomy -: heart cath with stent placement - Social History Smoking Status: Current some day smoker Alcohol use: No CD- Drugs: No Caffeine use: Yes Place of Residence: Home Review of Systems 10-point ROS is otherwise unremarkable Physical Examination Temp Pulse Resp BP Pulse Ox 97.1 F 58 16 103/54 L 95 10/17/23 11:40 10/17/23 11:40 10/17/23 11:40 10/17/23 11:40 10/17/23 11:40 General: Alert, Oriented x3 HEENT: Atraumatic Neck: Supple Respiratory: Clear to auscultation bilaterally Cardiovascular: No edema, Normal S1 S2, No murmurs Gastrointestinal: Normal bowel sounds Laboratory Data (last 24 hrs) 10/16/23 10/16/23 16:57 16:57 WBC 8.40 Hgb 13.9 Hct 41.6 Plt Count 330 Sodium 139 Potassium 4.1 BUN 14 Creatinine 0.92 Glucose 119 H - Problems (1) HTN (hypertension) Current Visit: Yes Status: Acute Plan: with in normal limit continue Metoprolol 50 mg po BID (2) CAD (coronary artery disease) Current Visit: Yes Status: Acute Plan: Patient with recent PCI of LCX and coronary angiogram showing moderate LAD/RCA disease. continue ASA 81 mg daily Continue Plavix 75 mg daily outpatient stress test. (3) SOB (shortness of breath) on exertion Current Visit: Yes Status: Acute Plan: get echo will get outpatient stress test.
== END 2023-10-17 14:41 | disposition home or self-care (01) ==
LOC: ER 16:25 → ERHOLD 19:26 → 2ND 20:51
PROVIDERS: ADMIT Internal Medicine; ATTEND Hospitalist
DX: R06.02 Shortness of breath (principal); I25.10 Atherosclerotic heart disease of native coronary artery without angina pectoris; I10 Essential (primary) hypertension; K21.9 Gastro-esophageal reflux disease without esophagitis; M54.9 Dorsalgia, unspecified; M85.80 Other specified disorders of bone density and structure, unspecified site; Z87.891 Personal history of nicotine dependence; Z95.5 Presence of coronary angioplasty implant and graft
CPT/HCPCS: 93005; 85025 ×2; 80048; 36415; 84443; 84484 ×2; 80053; 83880; 71250; 71275; 74176; 71045; 96374; 99285; Q9967; C9113; J1650; 90732; G0378

== ENCOUNTER 2023-11-28 11:58 | Day surgery (SDC) | payer OTHER ==
[2023-11-23 10:53] LABS: Absolute Basophils 0.1 K/uL (0-0.5); Absolute Eosinophils 0.3 K/uL (0-0.5); Absolute Lymphocytes (CBC) 2.6 K/uL (0.7-4.9); Absolute Monocytes 0.6 K/uL (0.1-1.3); Absolute Neutrophil 3.6 K/uL (1.8-8.0); Basophils % 0.7 % (0-1.3); Hematocrit 41.8 % (36.0-45.0); Hemoglobin 13.6 g/dL (12.0-15.0); Lymphocytes % 36.6 % (15.3-44.8); MCHC 32.5 g/dL (32.0-36.0); MCV 92.3 fL (80-100); MPV 10.3 fL (7.6-11.3); Monocytes % 8.3 % (3.3-12.3); Neutrophils % 50.4 % (41.7-73.7); Platelets 298 thou/uL (152-406); RBC Red Blood Cell Count 4.53 M/uL (3.86-4.86)
[2023-11-23 11:15] LABS: Anion Gap 5.6 mEq/L (5.0-15.0)
[2023-11-23 11:16] LABS: Potassium 3.6 mEq/L (3.5-5.1)
[2023-11-23 11:23] LABS: PT Prothrombin Time 10.4 SECONDS (9.5-12.5); PTT, Activated Partial Thromb 31.4 SECONDS (24.3-36.9); Protime INR 0.94
--- NOTE | 2023-11-24 16:54 | EKG ---
Test Date: 2023-11-23 Test Time: 09:42:15 Automation Consultant: NEGRA MEASUREMENT RESULTS: Intervals: Rate: 60 NC: 136 QRSD: 70 QT: 400 QTc: 400 [place]: P: 35 NC: 136 QRS: 22 T: 40 INTERPRETIVE STATEMENTS: Normal sinus rhythm Normal ECG Compared to ECG 10/16/2023 17:44:10 No significant changes Electronically Signed On 11-24-23 16:49:28 CDT by Kofi Gomez
[2023-11-28] MEDS ORDERED: NA CHLORIDE 0.9% 500 ML ONE (11:59)
[2023-11-28] MEDS ORDERED: MIDAZOLAM HCL 2 MG/2 ML INJ ONE (13:35)
[2023-11-28] MEDS ORDERED: FENTANYL CITR 100 MCG/2 ML ONE (13:35)
[2023-11-28] MEDS ORDERED: FLUMAZENIL 0.1 MG/ML (5 mL VIAL) IV ONE (13:36)
[2023-11-28] MEDS ORDERED: NALOXONE 0.4 MG/ML VIAL ONE (13:36)
[2023-11-28] MEDS ORDERED: ATROPINE SULF 1 MG/10 ML SYR IV ONE (13:36)
[2023-11-28] MEDS ORDERED: HEPA 1000U/500MLS 2,000 UNIT/1,000 ML BAG IV ONE (13:49)
[2023-11-28] MEDS ORDERED: LIDOCAINE 1% 20 ML MDV ONE (13:49)
[2023-11-28] MEDS ORDERED: VERAPAMIL HCL 10 MG/4 ML VIAL IV ONE (13:51)
[2023-11-28] MEDS ORDERED: HEPARIN 5000 UNIT/ML 1 ML VIAL ONE (13:51)
--- NOTE | 2023-11-28 15:47 | OP ---
Date of Procedure: 11/28/2023 Surgeon: JEREMI DAVIDSON Procedure Performed: Peripheral angiogram. Indication: Peripheral vascular disease with claudication. Access: Right radial artery 6-Turkish closed with TR band. Complications: None. Bleeding: Less than 20 mL. Anesthesia: Total sedation time was 45 minutes. Used fentanyl and Versed. Description Of Procedure: After risks, benefits, and alternatives were explained, patient agreed to procedure and signed informed consent. The patient was brought into the cardiac catheterization labo ratory, prepped and draped in the usual sterile fashion. Then, I accessed right radial artery using pediatric micropuncture kit, placed a 6-Turkish Slender sheath and took a 4-Turkish long pigtail cathet er in distal aorta, performed distal aortogram and runoff and then I removed the catheter and the she ath, placed TR band with good hemostasis. Findings: 1.Distal aorta widely patent. 2.Right lower extremity: The right common iliac, right external and internal iliacs, right common f emoral were widely patent. Right profunda is patent. Right SFA is widely patent with mid to distal focal 20% to 30% stenosis. Triple-vessel below the knee are widely patent with mild disease. 3.Left lower extremity, left common iliac, external iliac, internal iliac, common femoral, and profu nda were widely patent. 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 Conclusion: Severe left SFA stenosis. Plan: Intervention with atherectomy at [place]. SR/MODL Voice ID: [id number] Report ID: [id number]
[2023-11-28 16:49] VITALS: BP 143/70; O2SAT 99
== END 2023-11-28 16:15 | disposition home or self-care (01) ==
LOC: CCL 11:58
PROVIDERS: ATTEND Internal Medicine
DX: I70.213 Atherosclerosis of native arteries of extremities with intermittent claudication, bilateral legs (principal); I70.92 Chronic total occlusion of artery of the extremities; I25.10 Atherosclerotic heart disease of native coronary artery without angina pectoris; I10 Essential (primary) hypertension; E78.2 Mixed hyperlipidemia; K21.9 Gastro-esophageal reflux disease without esophagitis
CPT/HCPCS: 36200; 36415; 75630; 76937; 80048; 85025; 85610; 85730; 93005; 99152; 99153; C1893; J0461; J1644; J2001; J2250; J2310; J3010; J7040